=== PATIENT | female | born 1990 | race Caucasian/White ===

== ENCOUNTER 2017-08-14 09:41 | Emergency (ER) | payer BC, OTHER ==
[2017-08-14 10:00] VITALS: TEMP 98.1
[2017-08-14] MEDS ORDERED: SODIUM CHLORIDE 0.9% 1,000 ML IV ONE (10:37)
[2017-08-14 11:05] LABS: Appearance,Urine Clear (Clear); Bilirubin,Urine Negative (Negative); Blood,Urine Negative (Negative); Color,Urine Yellow; Glucose,Urine (UA) Negative (Negative); Ketones,Urine Trace (Negative); Leukocyte Esterase,Urine Negative (Negative); Nitrite,Urine Negative (Negative); Protein,Urine Negative (Negative); Specific Gravity,Urine 1.012 (1.001-1.035); Urobilinogen,Urine <2.0 mg/dL (<2.0)
[2017-08-14 11:08] LABS: Basophils % (A) 0 %; Eosinophils # (A) 0.2 k/uL (0-0.7); Eosinophils % (A) 2 %; HCT 36.9 % (34.0-46.0); HGB 12.8 gm/dL (11.4-16.0); Lymphocytes # (A) 1.4 k/uL (1.0-4.8); Lymphocytes % (A) 20 %; MCH 30.7 pg (25.0-35.0); MCHC 34.7 g/dL (31.0-37.0); MCV 88.3 fL (80.0-100.0); Mean Platelet Volume 6.5; Monocytes # (A) 0.3 k/uL (0-1.0); Monocytes % (A) 5 %; Neutrophils # (A) 5.1 k/uL (1.3-7.7); Neutrophils % (A) 71 %; Platelet Count 237 k/uL (150-450); RBC 4.18 m/uL (3.80-5.40); RDW 12.7 % (11.5-15.5); WBC 7.1 k/uL (3.8-10.6)
[2017-08-14] MEDS ORDERED: ACETAMINOPHEN TAB 500 MG TAB PO STA (11:09)
[2017-08-14 11:10] LABS: ALT 23 U/L (9-52); AST 17 U/L (14-36); Albumin 3.9 g/dL (3.5-5.0); Alkaline Phosphatase 35 U/L (38-126); Anion Gap 10 mmol/L; Blood Urea Nitrogen 12 mg/dL (7-17); Carbon Dioxide 23 mmol/L (22-30); Chloride 103 mmol/L (98-107); Glucose 78 mg/dL (74-99); Potassium 4.1 mmol/L (3.5-5.1); Sodium 136 mmol/L (137-145); Total Bilirubin 0.5 mg/dL (0.2-1.3); Total Protein 6.4 g/dL (6.3-8.2)
--- NOTE | 2017-08-14 11:10 | ED ---
Abdominal Pain HPI - General Chief Complaint: Abdominal Pain Stated Complaint: cramping - 13wks preg Time Seen by Provider: 08/14/17 10:05 Source: patient, RN notes reviewed, old records reviewed Mode of arrival: ambulatory Limitations: no limitations - History of Present Illness Initial Comments: She is a 26-year-old female currently 13 weeks , presenting to emergency Department chief complaint of vaginal cramping. She reports this occurred after she had intercourse last night. She denies any bleeding or discharge. Denies any dysuria. Patient reports that her HEAVY LINE TECHNICIAN is Dr. De La Fuente. She did have an ultrasound confirming intrauterine approximately 7 weeks ago. Patient states that she has also been having episodes her heart seems to flutter throughout the day. Patient states that she has no dysuria or hematuria. Normal stools. She denies any significant back pain. She does report that earlier today she felt sharp stabbing pain in her pelvis, but it has lessened throughout the day. - Related Data Home Medications Medication Instructions Recorded Confirmed Acetaminophen Tab [Tylenol Tab] 650 mg PO Q6H PRN 08/14/17 08/14/17 Sso-Vlsz-Sufis Acid 1 cap PO DAILY 08/14/17 08/14/17 [-U Capsule (formulary)] Allergies Allergy/AdvReac Type Severity Reaction Status Date / Time dexamethasone [From Decadron] Allergy Swelling Verified 08/14/17 10:07 Review of Systems ROS Statement: Those systems with pertinent positive or pertinent negative responses have been documented in the HPI. ROS Other: All systems not noted in ROS Statement are negative. Past Medical History Past Medical History: Hypertension Additional Past Medical History / Comment(s): adhd History of Any Multi-Drug Resistant Organisms: None Reported Additional Past Surgical History / Comment(s): lap/ hystoscopy Past Psychological History: No Psychological Hx Reported Smoking Status: Former smoker Past Alcohol Use History: None Reported Past Drug Use History: None Reported General Exam - General Exam Comments Initial Comments: 26-year-old female. Alert and oriented. No acute distress. Limitations: no limitations General appearance: alert, in no apparent distress Head exam: Present: atraumatic, normocephalic, normal inspection Eye exam: Present: normal appearance, PERRL, EOMI. Absent: scleral icterus, conjunctival injection, periorbital swelling ENT exam: Present: normal exam, mucous membranes moist Neck exam: Present: normal inspection. Absent: tenderness, meningismus, lymphadenopathy Respiratory exam: Present: normal lung sounds bilaterally. Absent: respiratory distress, wheezes, rales, rhonchi, stridor Cardiovascular Exam: Present: regular rate, normal rhythm, normal heart sounds. Absent: systolic murmur, diastolic murmur, rubs, gallop, clicks GI/Abdominal exam: Present: soft, tenderness (minimal suprapubic tenderness.), normal bowel sounds. Absent: distended, guarding, rebound, rigid Extremities exam: Present: normal inspection, full ROM, normal capillary refill. Absent: tenderness, pedal edema, joint swelling, calf tenderness Back exam: Present: normal inspection Neurological exam: Present: alert, oriented X3, CN II-XII intact Psychiatric exam: Present: normal affect, normal mood Course Vital Signs 08/14/17 09:55 Temperature 98.1 F Pulse Rate 83 Respiratory 16 Rate Blood Pressure 109/70 O2 Sat by Pulse 100 Oximetry Medical Decision Making - Medical Decision Making Patient is a 26-year-old female presents emergency Department chief complaint of lower abdominal pelvic cramping after intercourse last night.. She 13 weeks . Her HEAVY LINE TECHNICIAN is brandy Rao and she is . She also complained of some episodes of heart palpitations. This her EKG was reviewed and normal. Patient's labwork showed no evidence of any acute or maladies. She has no vaginal discharge. Ultrasound was completed. TONSILS a viable IUP measuring 13 weeks. kidney process. Patient informed of these results. I discussed symptoms are secondary to uterine stretching or anxious irritation after intercourse. Discussed proper follow-up with primary care physician. All questions answered and return parameters were discussed. - Lab Data Result diagrams: 08/14/17 10:47 08/14/17 10:47 Lab Results 08/14/17 08/14/17 08/14/17 Range/Units 10:47 10:47 10:47 WBC 7.1 (3.8-10.6) k/uL RBC 4.18 (3.80-5.40) m/uL Hgb 12.8 (11.4-16.0) gm/dL Hct 36.9 (34.0-46.0) % MCV 88.3 (80.0-100.0) fL MCH 30.7 (25.0-35.0) pg MCHC 34.7 (31.0-37.0) g/dL RDW 12.7 (11.5-15.5) % Plt Count 237 (150-450) k/uL Neutrophils % 71 % Lymphocytes % 20 % Monocytes % 5 % Eosinophils % 2 % Basophils % 0 % Neutrophils # 5.1 (1.3-7.7) k/uL Lymphocytes # 1.4 (1.0-4.8) k/uL Monocytes # 0.3 (0-1.0) k/uL Eosinophils # 0.2 (0-0.7) k/uL Basophils # 0.0 (0-0.2) k/uL Sodium 136 L (137-145) mmol/L Potassium 4.1 (3.5-5.1) mmol/L Chloride 103 (98-107) mmol/L Carbon Dioxide 23 (22-30) mmol/L Anion Gap 10 mmol/L BUN 12 (7-17) mg/dL Creatinine 0.56 (0.52-1.04) mg/dL Est GFR (CKD-EPI)AfAm >90 (>60 ml/min/1.73 sqM) Est GFR (CKD-EPI)NonAf >90 (>60 ml/min/1.73 sqM) Glucose 78 (74-99) mg/dL Calcium 9.0 (8.4-10.2) mg/dL Total Bilirubin 0.5 (0.2-1.3) mg/dL AST 17 (14-36) U/L ALT 23 (9-52) U/L Alkaline Phosphatase 35 L (38-126) U/L Total Protein 6.4 (6.3-8.2) g/dL Albumin 3.9 (3.5-5.0) g/dL Urine Color Urine Appearance (Clear) Urine pH (5.0-8.0) Ur Specific [place] (1.001-1.035) Urine Protein (Negative) Urine Glucose (UA) (Negative) Urine Ketones (Negative) Urine Blood (Negative) Urine Nitrite (Negative) Urine Bilirubin (Negative) Urine Urobilinogen (<2.0) mg/dL Ur Leukocyte Esterase (Negative) Blood Type A Positive Blood Type Recheck No 08/14/17 Range/Units 10:47 WBC (3.8-10.6) k/uL RBC (3.80-5.40) m/uL Hgb (11.4-16.0) gm/dL Hct (34.0-46.0) % MCV (80.0-100.0) fL MCH (25.0-35.0) pg MCHC (31.0-37.0) g/dL RDW (11.5-15.5) % Plt Count (150-450) k/uL Neutrophils % % Lymphocytes % % Monocytes % % Eosinophils % % Basophils % % Neutrophils # (1.3-7.7) k/uL Lymphocytes # (1.0-4.8) k/uL Monocytes # (0-1.0) k/uL Eosinophils # (0-0.7) k/uL Basophils # (0-0.2) k/uL Sodium (137-145) mmol/L Potassium (3.5-5.1) mmol/L Chloride (98-107) mmol/L Carbon Dioxide (22-30) mmol/L Anion Gap mmol/L BUN (7-17) mg/dL Creatinine (0.52-1.04) mg/dL Est GFR (CKD-EPI)AfAm (>60 ml/min/1.73 sqM) Est GFR (CKD-EPI)NonAf (>60 ml/min/1.73 sqM) Glucose (74-99) mg/dL Calcium (8.4-10.2) mg/dL Total Bilirubin (0.2-1.3) mg/dL AST (14-36) U/L ALT (9-52) U/L Alkaline Phosphatase (38-126) U/L Total Protein (6.3-8.2) g/dL Albumin (3.5-5.0) g/dL Urine Color Yellow Urine Appearance Clear (Clear) Urine pH 7.0 (5.0-8.0) Ur Specific [place] 1.012 (1.001-1.035) Urine Protein Negative (Negative) Urine Glucose (UA) Negative (Negative) Urine Ketones Trace H (Negative) Urine Blood Negative (Negative) Urine Nitrite Negative (Negative) Urine Bilirubin Negative (Negative) Urine Urobilinogen <2.0 (<2.0) mg/dL Ur Leukocyte Esterase Negative (Negative) Blood Type Blood Type Recheck - Radiology Data Radiology results: report reviewed EKG shows normal sinus rhythm and normal EKG. Ventricular 63 bpm. DC interval is 140 ms. QRS duration 82 ms. QT QTc is 428/437 ms. No necessary based or T- wave inversion. Single live intrauterine with estimated gestational age of 13 weeks and 0 days by last nausea. Current ultrasound by Johann case. No. Gestational bleed seen. Complete survey recommended 18-20 weeks. Disposition Clinical Impression: Pelvic cramping, 13 weeks gestation of Disposition: HOME SELF-CARE Condition: Good Instructions: Abdominal Pain in (ED) Additional Instructions: Patient advised to take Tylenol for pain. Patient should follow-up with primary care physician and HEAVY LINE TECHNICIAN.. Return to emergency department if any alarming signs or symptoms occur. Is patient prescribed a controlled substance at d/c from ED?: No When asked, does pt state using other controlled substances?: No If prescribed controlled substance>3 days was MAPS reviewed?: No If opioid is for acute pain is fill amount 7 days or less?: No If Rx opioid, was Start Talking consent form obtained?: No Referrals: Nancy Beasley MD [Primary Care Provider] - 1-2 days Time of Disposition: 12:06
--- NOTE | 2017-08-14 11:59 | US ---
EXAMINATION TYPE: Transabdominal DATE OF EXAM: 05/13/17 COMPARISON: NONE CLINICAL HISTORY: 26-year-old female Pain. HX of IUD puncture. Spotting last night. General crampin g. EXAM PERFORMED: Transabdominal (TA) FINDINGS: EXAM MEASUREMENTS: GESTATIONAL AGE / DATING Dates by LMP: (13 weeks/0 days) EDC: 02/19/2018 Dates by Current Scan for: (13 weeks/4 days +/- 1 week 2 days) EDC: 02/15/2018 MATERNAL ANATOMY Uterus: 12.9 x 10.5 x 7.7 cm Right Ovary: 3.3 x 1.6 x 1.2 cm Left Ovary: 2.9 x2.2 x 1.4 cm Post CDS / Adnexa: no free fluid Presence of free fluid: no Presence of corpus luteal cyst: Left hypoechoic lesion - 1.2 x 1.6 x 0.9 cm Presence of subchorionic bleed: no GESTATION / SURVEY CRL: 7.4 (13 weeks/4 days) MSD: seen, not measured Yolk Sac (normal less than 6mm): not visualized Heart Rate: 159 bpm Rhythm: Normal IUP: Viable IUP Date of LMP: 05/15/2017, G1 Beta HcG (if available): Not available at this time Auditor Internal notes: Single live IUP measuring 13 weeks 4 days IMPRESSION: 1. Single live intrauterine with estimated gestational age of 13 weeks 0 days by LMP. [facility] ultrasound biometry is concordant (13 weeks 4 days). 2. No perigestational bleed seen. 3. Complete survey recommended at 18-20 weeks.
[2017-08-14 12:30] VITALS: BP 106/55; PULSE 69; RESP 18
== END 2017-08-14 12:27 | disposition home or self-care (01) ==
LOC: EC 09:41
DX: O26.891 Other specified pregnancy related conditions, first trimester (principal); R10.2 Pelvic and perineal pain; Z3A.13 13 weeks gestation of pregnancy; Z87.891 Personal history of nicotine dependence; Z88.8 Allergy status to other drugs, medicaments and biological substances
CPT/HCPCS: 36415; 76801; 80053; 81003; 84702; 85025; 86900; 86901; 93005; 96360; 99285

== ENCOUNTER 2018-01-24 10:04 | Inpatient (IN) | payer BC, OTHER ==
[2018-01-24 10:53] LABS: Appearance,Urine Clear (Clear); Bilirubin,Urine Negative (Negative); Blood,Urine Negative (Negative); Color,Urine Colorless; Glucose,Urine (UA) Negative (Negative); Ketones,Urine Negative (Negative); Leukocyte Esterase,Urine Negative (Negative); Nitrite,Urine Negative (Negative); PH, Urine 6.5 (5.0-8.0); Protein,Urine Trace (Negative); Specific Gravity,Urine 1.001 (1.001-1.035); Urobilinogen,Urine <2.0 mg/dL (<2.0)
[2018-01-24 11:01] LABS: Basophils % (A) 0 %; Eosinophils # (A) 0.2 k/uL (0-0.7); Eosinophils % (A) 2 %; HCT 35.7 % (34.0-46.0); HGB 12.1 gm/dL (11.4-16.0); Lymphocytes # (A) 1.8 k/uL (1.0-4.8); Lymphocytes % (A) 20 %; MCH 31.1 pg (25.0-35.0); MCHC 33.9 g/dL (31.0-37.0); MCV 91.7 fL (80.0-100.0); Mean Platelet Volume 8.7; Monocytes # (A) 0.5 k/uL (0-1.0); Monocytes % (A) 5 %; Neutrophils # (A) 6.4 k/uL (1.3-7.7); Neutrophils % (A) 71 %; Platelet Count 181 k/uL (150-450); RDW 13.5 % (11.5-15.5); WBC 9.1 k/uL (3.8-10.6)
[2018-01-24] MEDS ORDERED: LIDOCAINE 0.5% (PF) 5 MG/ML (50 ML SDV) SQ PRN (11:01)
[2018-01-24] MEDS ORDERED: CITRIC ACID-SODIUM CITRATE 15 ML CUP PO ONE (11:03)
[2018-01-24] MEDS ORDERED: ceFAZolin IN SWFI 2 GM/20 ML SYRINGE IVP ONE (11:03)
[2018-01-24] MEDS ORDERED: hydrALAZINE HCL 20 MG/ML 1 ML VIAL IVP PRN (11:05)
[2018-01-24 11:06] LABS: ALT 29 U/L (9-52); AST 22 U/L (14-36); Blood Urea Nitrogen 10 mg/dL (7-17); LDH 478 U/L (313-618); Uric Acid 4.9 mg/dL (3.7-7.4)
[2018-01-24] MEDS ORDERED: LACTATED RINGERS 1,000 ML IV SCH (11:15)
[2018-01-24] MEDS ORDERED: LACTATED RINGERS 1,000 ML BAG IV ONE (11:36)
[2018-01-24] MEDS ORDERED: MORPHINE SULFATE (PF) 0.3 MG/0.3 ML SYR ONE (11:36)
[2018-01-24] MEDS ORDERED: ONDANSETRON 4 MG/2 ML VIAL ONE (11:36)
[2018-01-24] MEDS ORDERED: diphenhydrAMINE 25 MG CAP PO PRN (11:37)
[2018-01-24] MEDS ORDERED: ZOLPIDEM 5 MG TAB PO PRN (11:37)
[2018-01-24] MEDS ORDERED: diphenhydrAMINE 50 MG/ML 1 ML VIAL IVP PRN ×2 (11:37)
[2018-01-24] MEDS ORDERED: ONDANSETRON 4 MG/2 ML VIAL IVP PRN (11:37)
[2018-01-24] MEDS ORDERED: diphenhydrAMINE 50 MG CAP PO PRN (11:37)
[2018-01-24] MEDS ORDERED: NALOXONE 0.4 MG/ML 1 ML VIAL IV PRN (11:37)
[2018-01-24] MEDS ORDERED: ACETAMINOPHEN IV (For NPO) 1,000 MG in EMPTY BAG 1 BAG IVPB ONE (11:37)
[2018-01-24] MEDS ORDERED: METOCLOPRAMIDE 5 MG/ML 2 ML VIAL IVP PRN (11:37)
[2018-01-24] MEDS ORDERED: OXYTOCIN 20 UNITS/1000 ML NS 1,000 ML IV SCH (11:45)
--- NOTE | 2018-01-24 12:25 | P.OP ---
Date of Procedure: 01/24/18 Preoperative Diagnosis: IUP at 36 and 2/sevenths weeks, severe preeclampsia, remote from delivery, history of tailbone fracture Postoperative Diagnosis: Same Procedure(s) Performed: Primary low transverse section Anesthesia: spinal Surgeon: [facility] Medical Director #1: Orlando Cheema Estimated Blood Loss (ml): 400 IV fluids (ml): 1,200 Urine output (ml): 600 Pathology: other (Placenta) Condition: stable Disposition: PACU Indications for Procedure: Severe preeclampsia, remote from delivery with a known history of tailbone fracture Operative Findings: Uterus is noted to have a soft tissue defect from IUD perforation in the past otherwise normal tubes and ovaries were appreciated. Infant girl delivered at 1158, weight of 5 lbs. 7 oz. with Apgars of 8 and 9 at one and 5 minutes respectively. Description of Procedure: The patient was prepped and draped in the usual fashion after spinal anesthesia was administered by Dr. Dugan. A Pfannenstiel incision was made and extended of the abdominal cavity without difficulty. The bladder peritoneum was elevated and incised and reflected distally. A 2 cm incision was made in the transverse plane of the lower uterine segment to enter the uterus at which time clear fluid was noted. The incision was extended in both directions using the bandage scissors. The head was encountered within the field and delivered up and through the incision where the nose and mouth were thoroughly suctioned. Remainder of the was delivered onto the surgical field where the cord was doubly clamped, cut, and the was passed for resuscitative measures with weight and Apgars as noted above. A segment of cord was then doubly clamped, cut, and set aside should cord gases become necessary. The placenta was delivered manually, intact, and was grossly normal with a grossly normal three-vessel cord. The uterus was exteriorized and the interior cavity of the uterus swept of any remaining placental and membranous fragments with a laparotomy sponge. The margins of the incision were grasped with allis clamps and the incision closed in 2 layers. First layer was a running locking layer of 0 vicryl from margin to margin followed by a second layer of imbricating 0 vicryl from margin to margin. Any small points of bleeding were then made hemostatic with the Bovie. Once hemostasis was achieved, the posterior cul-de- sac was suctioned with a guard and the uterine and ovarian findings are as noted above. The uterus was replaced within the abdominal cavity and the gutters swept of any remaining blood fluid or clot. The incision was again reexamined and hemostasis was noted to be excellent. Any small point of bleeding were made hemostatic with the Bovie. Once hemostasis was achieved the parietal peritoneum was loosely reapproximated. The layer of muscles were examined and made hemostatic with the Bovie. Attention was then turned to the fascia which was closed with 2 running stitches of 0 Vicryl proceeding from the lateral margins to the midpoint. The subcutaneous tissues were irrigated, made hemostatic with the Bovie, and reapproximated with a running stitch of 3-0 vicryl. The skin was reapproximated with 4-0 vicryl. Estimated blood loss for the case was approximately 400 mL. All sponge instrument and needle counts are correct. There were no complications. The patient tolerated the procedure well and proceeded to the recovery room in stable condition. Both mother and infant are resting comfortably in recovery.
--- NOTE | 2018-01-24 12:26 | P.HPOB ---
History of Present Illness H&P Date: 01/24/18 Chief Complaint: IUP at 36 and 2/sevenths weeks, headache, severe preeclampsia This is a very pleasant 27-year-old 1 para 0 at 36-2/7 weeks that presented to labor and delivery with complaints of elevated blood pressure and headache. Patient states the headaches or last evening delivered in nature for which she took some Tylenol this morning she noted a headache to be increasing so she decided to come in. In addition she was complaining of epigastric pain which she noted last night and fascia just pulled a muscle. On initial physical exam blood pressure was noted to be elevated 150s over 90s, blood pressures continued to increase to 160/170s/115. Patient has been receiving routine care with myself since the first trimester. On blood work showed blood type of A+, rubella immune, RPR nonreactive, hepatitis B surface antigen negative, HIV negative, group beta strep was done on 1210 but no result was noted in the chart as of yet. Patient had routine 20 week ultrasound which was normal in nature and consistent with last menstrual period. Review of Systems Constitutional: Denies chills, Denies fever Ears, nose, mouth and throat: Reports headache Cardiovascular: Reports leg edema Respiratory: Denies dyspnea Gastrointestinal: Reports heartburn, Denies nausea, Denies vomiting Genitourinary: Reports Past Medical History Past Medical History: Hypertension Additional Past Medical History / Comment(s): adhd History of Any Multi-Drug Resistant Organisms: None Reported Additional Past Surgical History / Comment(s): lap/ hystoscopy Smoking Status: Former smoker Medications and Allergies Home Medications Medication Instructions Recorded Confirmed Type Acetaminophen Tab [Tylenol Tab] 650 mg PO Q6H PRN 08/14/17 08/14/17 History Kxf-Qxry-Zvxls Acid 1 cap PO DAILY 08/14/17 01/24/18 History [-U Capsule (formulary)] Allergies Allergy/AdvReac Type Severity Reaction Status Date / Time dexamethasone [From Decadron] Allergy Swelling Verified 01/24/18 10:16 Exam Osteopathic Statement: *. No significant issues noted on an osteopathic structural exam other than those noted in the History and Physical/Consult. Intake and Output 01/23/18 01/24/18 01/24/18 22:59 06:59 14:59 Other: Weight 78.925 kg Targeted physical exam was performed and the patient in general this is a well- nourished well-developed gravid female in no acute distress, lungs noted to be clear to auscultation bilaterally and nonlabored breathing is noted heart attack noted regular rate and rhythm. Blood pressure is significantly elevated as stated above, heart tones were noted to be reactive and she is not nanda. Abdomen is noted to be soft and nontender gravid and appropriate for gestational age Results Result Diagrams: 01/24/18 10:44 01/24/18 10:44 Abnormal Lab Results - Last 24 Hours (Table) 01/24/18 Range/Units 10:32 Urine Protein Trace H (Negative) Assessment and Plan (1) Pre-eclampsia Current Visit: Yes Status: Acute Code(s): O14.90 - UNSPECIFIED PRE-ECLAMPSIA , UNSPECIFIED TRIMESTER SNOMED Code(s): 269622580 (2) Head ache Current Visit: Yes Status: Acute Code(s): R51 - HEADACHE SNOMED Code(s): 16611600 (3) Epigastric abdominal pain Current Visit: Yes Status: Acute Code(s): R10.13 - EPIGASTRIC PAIN SNOMED Code(s): 53082859 (4) 36 weeks gestation of Current Visit: Yes Status: Acute Code(s): Z3A.36 - 36 WEEKS GESTATION OF SNOMED Code(s): 73756267 Plan: Preeclampsia labs are ordered on admission, patient is counseled as the need for a primary secondary to her history of a fractured tailbone, severe preeclampsia and remoteness from delivery. Patient states understanding and is in agreement in the of the plan. Patient is counseled the risks of surgery including but not limited to infection, bleeding, damage to bladder, bowel, injury or other pelvic structures. Patient states understanding and anesthesia Alee Real patient
[2018-01-24] MEDS ORDERED: IBUPROFEN IV 800 MG in SODIUM CHLORIDE 0.9% 250 ML IV ONE (12:27)
[2018-01-24 12:39] VITALS: BMI 34.0
[2018-01-24] MEDS: LABETALOL 200 MG TAB PO SCH ×2 (12:45→20:26)
[2018-01-24] MEDS: IBUPROFEN 600 MG TAB PO PRN (16:46)
[2018-01-24 18:11] LABS: ALT 25 U/L (9-52); AST 30 U/L (14-36); Blood Urea Nitrogen 9 mg/dL (7-17); LDH 887 U/L (313-618); Uric Acid 4.4 mg/dL (3.7-7.4)
[2018-01-24 18:12] LABS: Basophils % (A) 0 %; Eosinophils # (A) 0.1 k/uL (0-0.7); Eosinophils % (A) 1 %; HCT 34.1 % (34.0-46.0); HGB 11.1 gm/dL (11.4-16.0); Lymphocytes # (A) 1.2 k/uL (1.0-4.8); Lymphocytes % (A) 11 %; MCH 30.1 pg (25.0-35.0); MCHC 32.7 g/dL (31.0-37.0); MCV 92.2 fL (80.0-100.0); Mean Platelet Volume 8.3; Monocytes # (A) 0.4 k/uL (0-1.0); Monocytes % (A) 3 %; Neutrophils # (A) 9.6 k/uL (1.3-7.7); Neutrophils % (A) 84 %; Platelet Count 182 k/uL (150-450); RDW 13.7 % (11.5-15.5); WBC 11.4 k/uL (3.8-10.6)
[2018-01-24] MEDS: ACETAMINOPHEN TAB 325 MG TAB PO PRN (19:20)
[2018-01-24] MEDS: LACTATED RINGERS 1,000 ML IV SCH ×2 (19:23→22:07)
[2018-01-24] MEDS ORDERED: LABETALOL 100 MG TAB PO SCH (21:00)
[2018-01-24] MEDS: SENNOSIDES-DOCUSATE SODIUM 1 EACH TAB PO SCH (22:08)
[2018-01-25] MEDS: ACETAMINOPHEN TAB 325 MG TAB PO PRN (03:46)
[2018-01-25] MEDS: LACTATED RINGERS 1,000 ML IV SCH ×2 (05:08→20:07)
[2018-01-25 05:41] LABS: Basophils % (A) 0 %; Eosinophils # (A) 0.1 k/uL (0-0.7); Eosinophils % (A) 2 %; HCT 31.1 % (34.0-46.0); HGB 10.6 gm/dL (11.4-16.0); Lymphocytes # (A) 1.3 k/uL (1.0-4.8); Lymphocytes % (A) 15 %; MCH 31.2 pg (25.0-35.0); MCV 91.7 fL (80.0-100.0); Monocytes # (A) 0.3 k/uL (0-1.0); Monocytes % (A) 4 %; Neutrophils # (A) 6.7 k/uL (1.3-7.7); Neutrophils % (A) 78 %; Platelet Count 155 k/uL (150-450); RBC 3.39 m/uL (3.80-5.40); RDW 13.7 % (11.5-15.5); WBC 8.5 k/uL (3.8-10.6)
[2018-01-25 05:54] LABS: ALT 30 U/L (9-52); AST 35 U/L (14-36); Blood Urea Nitrogen 8 mg/dL (7-17); LDH 701 U/L (313-618)
--- NOTE | 2018-01-25 08:17 | P.PNOBGPC ---
Subjective - Subjective Principal diagnosis: POD 1 severe preeclampsia Interval history: Patient has done well overnight. Blood pressures remained remained controlled with labetalol 200 twice daily. She denied headache to me this morning she states she is hungry. Urine output has been very good overnight. She denies discomfort this morning and is breast-feeding without difficulty Patient reports: Reports appetite normal, Reports pain well controlled [place]: doing well, nursing well Objective - Vital Signs Latest vital signs: Vital Signs Temp Pulse Resp BP Pulse Ox 01/25/18 08:00 97.8 F 103 H 16 153/93 01/25/18 04:00 98.1 F 90 15 120/77 98 01/25/18 00:00 98 F 95 15 129/83 01/24/18 20:00 98 F 94 15 150/100 98 01/24/18 18:51 90 14 142/102 01/24/18 16:00 97.8 F 72 16 134/82 01/24/18 14:25 90 16 133/80 01/24/18 13:55 83 14 132/82 01/24/18 13:25 94 14 130/80 01/24/18 13:10 95 14 141/87 01/24/18 12:55 81 14 142/83 01/24/18 12:40 84 14 168/87 01/24/18 12:25 96.4 F L 75 14 155/100 Intake and Output 01/24/18 01/25/18 01/25/18 22:59 06:59 14:59 Intake Total 1900 Output Total 2000 600 Balance -100 -600 Intake: IV 1900 Invasive Line 1 1000 Lactated Ringers 1,000 ml 900 @ 125 mls/hr IV .Q8H [facility] Rx#:[id number] Output: Urine 2000 600 Other: Voiding Method Indwelling Catheter Indwelling Catheter - Exam Extremities: Present: normal Abdomen: Present: normal appearance, soft Incision: Present: normal, dry, intact Uterus: Present: normal, firm - Labs Labs: Abnormal Lab Results - Last 24 Hours (Table) 01/24/18 01/24/18 01/24/18 Range/Units 10:32 17:41 17:41 WBC 11.4 H (3.8-10.6) k/uL RBC 3.70 L (3.80-5.40) m/uL Hgb 11.1 L (11.4-16.0) gm/dL Hct (34.0-46.0) % Neutrophils # 9.6 H (1.3-7.7) k/uL Creatinine 0.48 L (0.52-1.04) mg/dL Lactate Dehydrogenase 887 H (313-618) U/L Urine Protein Trace H (Negative) 01/25/18 01/25/18 Range/Units 05:24 05:24 WBC (3.8-10.6) k/uL RBC 3.39 L (3.80-5.40) m/uL Hgb 10.6 L (11.4-16.0) gm/dL Hct 31.1 L (34.0-46.0) % Neutrophils # (1.3-7.7) k/uL Creatinine (0.52-1.04) mg/dL Lactate Dehydrogenase 701 H (313-618) U/L Urine Protein (Negative) Assessment and Plan (1) Pre-eclampsia Current Visit: Yes Status: Acute Code(s): O14.90 - UNSPECIFIED PRE-ECLAMPSIA , UNSPECIFIED TRIMESTER SNOMED Code(s): 670489284 (2) Head ache Current Visit: Yes Status: Acute Code(s): R51 - HEADACHE SNOMED Code(s): 09671233 (3) Epigastric abdominal pain Current Visit: Yes Status: Acute Code(s): R10.13 - EPIGASTRIC PAIN SNOMED Code(s): 79092429 (4) 36 weeks gestation of Current Visit: Yes Status: Acute Code(s): Z3A.36 - 36 WEEKS GESTATION OF SNOMED Code(s): 44095361 Plan: Given her drop in platelets on morning labs from 180-155 we will redraw preeclampsia labs around noon this morning and continue to watch her blood pressures closely. We will continue routine postoperative care in addition. The Fuentes catheter may be discontinued this morning giving her excellent urine output and we will transitioned to oral pain medications this morning in addition.
[2018-01-25] MEDS: IBUPROFEN 600 MG TAB PO PRN ×3 (08:23→23:16)
[2018-01-25] MEDS: SENNOSIDES-DOCUSATE SODIUM 1 EACH TAB PO SCH ×2 (08:26→19:47)
[2018-01-25] MEDS: LABETALOL 200 MG TAB PO SCH ×2 (08:47→21:39)
[2018-01-25 12:21] LABS: Basophils % (A) 0 %; Eosinophils # (A) 0.1 k/uL (0-0.7); Eosinophils % (A) 1 %; HCT 30.6 % (34.0-46.0); HGB 10.6 gm/dL (11.4-16.0); Lymphocytes # (A) 0.8 k/uL (1.0-4.8); Lymphocytes % (A) 9 %; MCH 31.7 pg (25.0-35.0); MCHC 34.5 g/dL (31.0-37.0); Mean Platelet Volume 8.6; Monocytes # (A) 0.3 k/uL (0-1.0); Monocytes % (A) 3 %; Neutrophils # (A) 7.4 k/uL (1.3-7.7); Neutrophils % (A) 85 %; Platelet Count 169 k/uL (150-450); RBC 3.33 m/uL (3.80-5.40); RDW 13.8 % (11.5-15.5); WBC 8.7 k/uL (3.8-10.6)
[2018-01-25 12:30] LABS: ALT 30 U/L (9-52); AST 37 U/L (14-36); Blood Urea Nitrogen 10 mg/dL (7-17); LDH 746 U/L (313-618); Uric Acid 5.3 mg/dL (3.7-7.4)
[2018-01-25] MEDS: HYDROcodone/APAP 5-325MG 1 EACH TAB PO PRN ×2 (14:29→19:45)
[2018-01-25] MEDS ORDERED: OXYBUTYNIN XL 5 MG TAB.ER.24 PO SCH (17:15)
[2018-01-25] MEDS: PRENATAL VIT-IRON-FOLIC ACID 1 EACH CAP PO SCH (18:10)
[2018-01-25 18:39] LABS: Basophils % (A) 0 %; Eosinophils # (A) 0.1 k/uL (0-0.7); Eosinophils % (A) 1 %; HCT 32.7 % (34.0-46.0); HGB 10.8 gm/dL (11.4-16.0); Lymphocytes # (A) 1.1 k/uL (1.0-4.8); Lymphocytes % (A) 10 %; MCH 30.9 pg (25.0-35.0); MCHC 33.2 g/dL (31.0-37.0); MCV 93.1 fL (80.0-100.0); Mean Platelet Volume 7.9; Monocytes # (A) 0.4 k/uL (0-1.0); Monocytes % (A) 4 %; Neutrophils # (A) 9.1 k/uL (1.3-7.7); Neutrophils % (A) 84 %; Platelet Count 194 k/uL (150-450); RBC 3.51 m/uL (3.80-5.40); WBC 10.8 k/uL (3.8-10.6)
[2018-01-25 18:53] LABS: ALT 25 U/L (9-52); AST 38 U/L (14-36); Blood Urea Nitrogen 11 mg/dL (7-17); LDH 766 U/L (313-618); Uric Acid 5.4 mg/dL (3.7-7.4)
[2018-01-25] MEDS ORDERED: SIMETHICONE 80 MG CHEWABLE PO STA (22:59)
[2018-01-26] MEDS: HYDROcodone/APAP 5-325MG 1 EACH TAB PO PRN ×5 (00:34→18:14)
[2018-01-26] MEDS: IBUPROFEN 600 MG TAB PO PRN ×3 (05:44→22:44)
[2018-01-26 07:23] LABS: Basophils % (A) 0 %; Eosinophils # (A) 0.2 k/uL (0-0.7); Eosinophils % (A) 2 %; HCT 30.6 % (34.0-46.0); HGB 9.9 gm/dL (11.4-16.0); Lymphocytes # (A) 1.6 k/uL (1.0-4.8); Lymphocytes % (A) 16 %; MCH 30.2 pg (25.0-35.0); MCHC 32.4 g/dL (31.0-37.0); MCV 93.3 fL (80.0-100.0); Mean Platelet Volume 7.5; Monocytes # (A) 0.4 k/uL (0-1.0); Monocytes % (A) 5 %; Neutrophils # (A) 7.3 k/uL (1.3-7.7); Neutrophils % (A) 75 %; Platelet Count 200 k/uL (150-450); RBC 3.28 m/uL (3.80-5.40); RDW 14.1 % (11.5-15.5); WBC 9.8 k/uL (3.8-10.6)
[2018-01-26 07:35] LABS: ALT 30 U/L (9-52); AST 35 U/L (14-36); Blood Urea Nitrogen 13 mg/dL (7-17); LDH 739 U/L (313-618); Uric Acid 5.5 mg/dL (3.7-7.4)
[2018-01-26] MEDS: LABETALOL 200 MG TAB PO SCH ×2 (08:37→21:11)
[2018-01-26] MEDS: SENNOSIDES-DOCUSATE SODIUM 1 EACH TAB PO SCH ×2 (08:37→19:54)
--- NOTE | 2018-01-26 09:41 | P.PN ---
Progress Note - Text 01/25 2047 27-year-old female status post a . Patient had a Duramorph spinal for postop pain control, she has a VAS of 2 with no complaints of nausea vomiting. She has mild pruritus which is getting better
--- NOTE | 2018-01-26 10:49 | CT ---
EXAMINATION TYPE: CT pelvis wo con DATE OF EXAM: 01/26/2018 COMPARISON: None HISTORY: C section 2 days ago, severe pain just below incision site CT DLP: 572 mGycm Automated exposure control for dose reduction was used. FINDINGS: There is vertical skin scar beginning at level of umbilicus extending inferiorly. There is horizontal scar overlying the pelvis. There is some ill-defined fluid and subcutaneous air at this level which correlates with recent . No well-formed fluid collection or abscess is identified. Mild to m oderate fluid and fat stranding with mild skin thickening inferior to this could reflect active subcu taneous infection or cellulitis on background of surgical change. Small focus of nondependent air within bladder is noted presumed related to recent Fuentes catheterizat ion for surgery. Bladder is mildly distended are prominent. There is some pneumoperitoneum anterior t o the bladder. This is nonspecific could be product of recent surgery. Heterogeneous anteverted prominent uterus is seen. Central foci of hyperdensity could reflect blood p roduct and air within the endometrial cavity presumed related to recent are noted. Myometri um is fairly homogeneous surrounding the endometrium. No distinct free fluid in pelvic cul-de-sac is identified. No suspicious bowel obstruction is seen. No concerning pelvic adenopathy is identified. Visualized os seous structures are intact. IMPRESSION: SUSPECT ACTIVE INFECTION OR CELLULITIS INVOLVING THE ANTERIOR PELVIC SUBCUTANEOUS FAT JUST BELOW INCI CHEO SITE CORRELATING TO PATIENT'S SYMPTOMS. NO WELL-FORMED FLUID COLLECTION OR ABSCESS IS SEEN. OTHE R NONSPECIFIC FINDINGS ARE FAVORED POSTSURGICAL.
--- NOTE | 2018-01-26 11:06 | P.PNOBGPC ---
Subjective - Subjective Principal diagnosis: POD 2 LTCS severe preeclampsia Interval history: Patient has been complaining of lower pelvic pain overnight. She states that when she gets up she will have pain on the left lower side of her pelvic area. She is able to urinate without difficulty and denies any pain with urination. She is passing gas. She states her lochia is moderate. She denies fevers or chills. She is breast-feeding without difficulty yet infant has dropped weight 9% from weight. She is taking [place] 5/325 and states there is no difference in the pain from taking it. She states she becomes nauseous when the pain is there. But is tolerating a regular diet without nausea or vomiting. Patient reports: Reports appetite normal, Reports voiding normally (some pain with ambulation ) : doing well (feeding difficulties, and she is considering supplementating) Objective - Vital Signs Latest vital signs: Vital Signs Temp Pulse Resp BP Pulse Ox 01/26/18 08:00 98.0 F 100 16 136/90 97 01/26/18 03:42 96 16 134/84 01/25/18 23:39 97.6 F 108 H 16 141/86 98 01/25/18 21:46 144/92 01/25/18 19:50 98.0 F 106 H 16 130/89 97 01/25/18 16:00 98.4 F 103 H 16 135/84 01/25/18 11:48 97.8 F 101 H 14 120/75 Intake and Output 01/25/18 01/26/18 01/26/18 22:59 06:59 14:59 Output Total 1500 1200 600 Balance -1500 -1200 -600 Output: Urine 1500 1200 600 Other: # Voids 1 1 - Exam Extremities: Present: normal Abdomen: Present: normal appearance, soft Incision: Present: normal, dry, intact Uterus: Present: normal, firm (tenderness over her pubic symphysis point tender. ) - Labs Labs: Abnormal Lab Results - Last 24 Hours (Table) 01/25/18 01/25/18 01/25/18 Range/Units 12:04 12:04 18:21 WBC 10.8 H (3.8-10.6) k/uL RBC 3.33 L 3.51 L (3.80-5.40) m/uL Hgb 10.6 L 10.8 L (11.4-16.0) gm/dL Hct 30.6 L 32.7 L (34.0-46.0) % Neutrophils # 9.1 H (1.3-7.7) k/uL Lymphocytes # 0.8 L (1.0-4.8) k/uL AST 37 H (14-36) U/L Lactate Dehydrogenase 746 H (313-618) U/L 01/25/18 01/26/18 01/26/18 Range/Units 18:21 06:52 06:52 WBC (3.8-10.6) k/uL RBC 3.28 L (3.80-5.40) m/uL Hgb 9.9 L (11.4-16.0) gm/dL Hct 30.6 L (34.0-46.0) % Neutrophils # (1.3-7.7) k/uL Lymphocytes # (1.0-4.8) k/uL AST 38 H (14-36) U/L Lactate Dehydrogenase 766 H 739 H (313-618) U/L Assessment and Plan (1) Pre-eclampsia Current Visit: Yes Status: Acute Code(s): O14.90 - UNSPECIFIED PRE-ECLAMPSIA , UNSPECIFIED TRIMESTER SNOMED Code(s): 481850776 (2) Head ache Current Visit: Yes Status: Acute Code(s): R51 - HEADACHE SNOMED Code(s): 64535574 (3) Epigastric abdominal pain Current Visit: Yes Status: Acute Code(s): R10.13 - EPIGASTRIC PAIN SNOMED Code(s): 88108602 (4) 36 weeks gestation of Current Visit: Yes Status: Acute Code(s): Z3A.36 - 36 WEEKS GESTATION OF SNOMED Code(s): 85768093 (5) Pelvic pain Current Visit: Yes Status: Acute Code(s): R10.2 - PELVIC AND PERINEAL PAIN SNOMED Code(s): 56500985 Plan: given her complaints of pain I will order CT scan of the pelvis. I doubt bladder issue as she has been voiding without difficulty, good output and yellow in color since souza was placed in the OR. she is passing flatus and abdomen is soft and uterus is firm, lochia is minimal. I do believe she has a musculoskeletal issue. I encouraged her to increase ambulation as POD 1 is a hard day and she should start to feel better today. of note CT scan was ordered and essentially neg with findings of questionable subcutaneous infection otherwise neg. will treat for presumed infection at site of pain. plan discussed with pt and although frustrated she is ok with the plan.
[2018-01-26] MEDS: ceFAZolin IN SWFI 2 GM/20 ML SYRINGE IVP SCH ×2 (11:50→19:53)
[2018-01-26] MEDS: PRENATAL VIT-IRON-FOLIC ACID 1 EACH CAP PO SCH (18:14)
[2018-01-27] MEDS: ACETAMINOPHEN TAB 325 MG TAB PO PRN (03:10)
[2018-01-27] MEDS: IBUPROFEN 600 MG TAB PO PRN (07:52)
[2018-01-27 08:24] VITALS: RESP 15
[2018-01-27] MEDS: LABETALOL 200 MG TAB PO SCH (08:33)
--- NOTE | 2018-01-27 09:18 | P.DS ---
Providers Date of admission: 01/24/18 11:07 Expected date of discharge: 01/27/18 Attending physician: Cherelle Linares Primary care physician: Stated None - Discharge Diagnosis(es) (1) Pre-eclampsia Current Visit: Yes Status: Acute (2) Head ache Current Visit: Yes Status: Acute (3) Epigastric abdominal pain Current Visit: Yes Status: Acute (4) 36 weeks gestation of Current Visit: Yes Status: Acute (5) Pelvic pain Current Visit: Yes Status: Acute Hospital Course: This is a pleasant 27-year-old 1 para 0 that presented to the hospital with complaints of headache. Elevated blood pressures were noted findings being 188/117. Patient was counseled on the need for primary low transverse section at that time secondary to blood pressures and being remote from delivery. Patient had noted headache and complaint of epigastric pain addition. She was given the diagnosis of severe preeclampsia and was performed. For further details on the please see the operative report. Patient delivered a viable female infant at Patient's postoperative course is been essentially uneventful. Her blood pressure is been controlled with labetalol 200 twice daily. She did complain of some lower suprapubic pain for which she received antibiotics and states she is feeling better on this postop day #3. On postop day #2 she did complain of significant pelvic pain therefore CAT scan was obtained and felt to be normal in nature. On this post day #3 she is ambulating and voiding without difficulty. She is tolerating a regular diet without nausea or vomiting. She states her pain is controlled with oral pain medication. She is breast-feeding without difficulty. Patient Condition at Discharge: Good Plan - Discharge Summary New Discharge Prescriptions: No Action Eoy-Mzde-Zxlmf Acid [-U Capsule (formulary)] 1 cap PO DAILY Acetaminophen Tab [Tylenol Tab] 650 mg PO Q6H PRN PRN Reason: Pain Discharge Medication List Acetaminophen Tab [Tylenol Tab] 650 mg PO Q6H PRN 08/14/17 [History] Now-Lyns-Xlstw Acid [-U Capsule (formulary)] 1 cap PO DAILY 06/27 [History] Follow up Appointment(s)/Referral(s): Cherelle Linares DO [Doctor of Osteopathic Medicine] - 1 Week Patient Instructions/Handouts: (DC), (GEN) Activity/Diet/Wound Care/Special Instructions: No tub baths or intercourse until 6 weeks Discharge Disposition: HOME SELF-CARE
[2018-01-27] MEDS: HYDROcodone/APAP 5-325MG 1 EACH TAB PO PRN (13:47)
[2018-01-27] MEDS: SENNOSIDES-DOCUSATE SODIUM 1 EACH TAB PO SCH (13:48)
[2018-01-27 13:57] VITALS: BP 135/88; PULSE 93; TEMP 98
== END 2018-01-27 15:09 | disposition home or self-care (01) | DRG 788 ==
LOC: FBPOP 10:04 → 4FBP 11:07
PROVIDERS: ADMIT Obstetrics & Gynecology Obstetrics; ATTEND Obstetrics & Gynecology Obstetrics
PROC: 10D00Z1 Extraction of Products of Conception, Low, Open Approach (ICD-10-PCS; principal; 2018-01-24 11:58)
DX: O14.14 Severe pre-eclampsia complicating childbirth (principal); O99.344 Other mental disorders complicating childbirth; F90.9 Attention-deficit hyperactivity disorder, unspecified type; L29.9 Pruritus, unspecified; Z3A.36 36 weeks gestation of pregnancy; Z37.0 Single live birth; Z79.899 Other long term (current) drug therapy; Z87.81 Personal history of (healed) traumatic fracture; Z87.891 Personal history of nicotine dependence
CPT/HCPCS: 59025; 72192; 81003; 82565; 83615; 84450; 84460; 84520; 84550; 85025; 88307; 99215

== ENCOUNTER 2018-10-19 19:46 | Emergency (ER) | payer OTHER ==
[2018-10-19 19:57] VITALS: RESP 18; TEMP 98.8
[2018-10-19] MEDS ORDERED: ACETAMINOPHEN TAB 325 MG TAB PO STA (20:05)
[2018-10-19] MEDS ORDERED: IBUPROFEN 600 MG TAB PO STA (20:05)
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
[2018-10-19 22:03] VITALS: BP 128/84; PULSE 95
== END 2018-10-19 22:02 | disposition home or self-care (01) ==
LOC: EC 19:46
DX: S92.422A Displaced fracture of distal phalanx of left great toe, initial encounter for closed fracture (principal); Z87.891 Personal history of nicotine dependence; Z88.8 Allergy status to other drugs, medicaments and biological substances; W23.0XXA Caught, crushed, jammed, or pinched between moving objects, initial encounter
CPT/HCPCS: 99283

== ENCOUNTER → 2019-03-29 | Outpatient (CLI) | payer OTHER ==
--- NOTE | 2019-03-30 03:33 | MR ---
EXAMINATION TYPE: MR brain wo con DATE OF EXAM: 03/29/2019 COMPARISON: None HISTORY: headache, family hx of aneurysm Multiplanar multiecho imaging of the brain was performed without contrast. Ventricles and sulci appea r normal. There is no mass effect nor midline shift. There is no sign of intracranial hemorrhage. Cor pus callosum appears normal. Sella turcica is normal. Diffusion images show no evidence of cortical infarct. There is no evidence of cerebral edema. There is some maxillary sinus mucosal thickening. There is no evidence of a posterior fossa mass. Cerebellu m appears normal. IMPRESSION: Negative MR scan of the brain. Mild maxillary sinusitis.
== END | disposition home or self-care (01) ==
LOC: RADMRIMAIN 09:14
PROVIDERS: ATTEND Family Medicine
DX: R51 Headache (principal)
CPT/HCPCS: 70551

== ENCOUNTER 2019-08-10 13:59 | Emergency (ER) | payer OTHER ==
[2019-08-10] MEDS ORDERED: HYDROmorphone 1 MG/ML 1 ML SYRINGE IVP STA (14:07)
[2019-08-10] MEDS ORDERED: KETOROLAC 60 MG/2 ML VIAL IVP STA (14:07)
[2019-08-10] MEDS ORDERED: SODIUM CHLORIDE 0.9% 500 ML 500 ML IV ONE (14:09)
[2019-08-10 14:17] VITALS: RESP 18
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
[2019-08-10] MEDS ORDERED: HYDROmorphone 0.5 MG/0.5 ML SYRINGE IVP STA (15:07)
[2019-08-10 16:32] VITALS: BP 135/68; PULSE 95; TEMP 98
== END 2019-08-10 16:32 | disposition home or self-care (01) ==
LOC: EC 13:59
DX: T59.4X1A Toxic effect of chlorine gas, accidental (unintentional), initial encounter (principal); T21.61XA Corrosion of second degree of chest wall, initial encounter; T22.631A Corrosion of second degree of right upper arm, initial encounter; T21.62XA Corrosion of second degree of abdominal wall, initial encounter; T32.0 Corrosions involving less than 10% of body surface; Z88.8 Allergy status to other drugs, medicaments and biological substances; Z87.891 Personal history of nicotine dependence; Y92.009 Unspecified place in unspecified non-institutional (private) residence as the place of occurrence of the external cause
CPT/HCPCS: 99284; 96374; 96375 ×2; 96361 ×2; J1885; J1170 ×2

== ENCOUNTER → 2020-06-28 | Outpatient (CLI) | payer OTHER ==
[2020-06-28 19:26] LABS: HCT 36.1 % (37.2-46.3); HGB 11.9 g/dL (12.0-15.0); MCH 30.6 pg (27.0-32.0); MCV 92.8 fL (80.0-97.0); Mean Platelet Volume 9.9 fL (9.5-12.2); Platelet Count 256 X 10*3/uL (140-440); RBC 3.89 X 10*6/uL (4.10-5.20); RDW 12.6 % (11.5-14.5); WBC 6.07 X 10*3/uL (4.50-10.00)
[2020-06-28 23:59] LABS: African American GFR (CKD) 141.8 (60.0-200.0); Non-African American GFR(CKD) 122.3 (60.0-200.0)
[2020-06-29 00:57] LABS: HCG,Quantitative Serum 23306.1 mIU/mL
== END | disposition home or self-care (01) ==
LOC: LABWHC1 11:25
PROVIDERS: ATTEND Obstetrics & Gynecology Obstetrics
DX: O00.90 Unspecified ectopic pregnancy without intrauterine pregnancy (principal); Z3A.00 Weeks of gestation of pregnancy not specified
CPT/HCPCS: 36415; 82565; 84450; 84460; 84520; 84702; 85027

== ENCOUNTER → 2020-06-28 | Outpatient (CLI) | payer OTHER ==
[~2020-06-28] MED LIST: METHOTREXATE SODIUM (PF) 25 MG/ML 2 ML VIAL IM NR
[2020-06-28 13:40] VITALS: BP 122/67; PULSE 88; RESP 16; TEMP 98.1
== END ==
LOC: PROCWHC3 13:06
PROVIDERS: ATTEND Obstetrics & Gynecology Obstetrics
DX: Z88.8 Allergy status to other drugs, medicaments and biological substances (principal); Z3A.36 36 weeks gestation of pregnancy; O00.109 Unspecified tubal pregnancy without intrauterine pregnancy; Z87.891 Personal history of nicotine dependence
CPT/HCPCS: 96372; J9260

== ENCOUNTER 2020-06-30 11:08 | Emergency (ER) | payer OTHER ==
[2020-06-30 11:16] VITALS: RESP 18
--- NOTE | 2020-06-30 12:38 | ED ---
Abdominal Pain HPI - General Chief Complaint: Abdominal Pain Stated Complaint: Abd pain/post tubal pregancy Time Seen by Provider: 06/30/20 11:34 Source: patient Mode of arrival: ambulatory Limitations: no limitations - History of Present Illness Initial Comments: Patient is a 29-year-old female presenting to the emergency department with continued right lower quadrant pain. Patient states she was being treated for an ectopic with FLAKE CUTTER OPERATOR Dr. Linares, she took a medication 2 days ago. Patient states she was having a lot of pain yesterday and this morning however when she took a shower she felt like her pain is decreasing. Patient states she called her FLAKE CUTTER OPERATOR in the recommend coming in for further evaluation. She's had no vaginal bleeding, no cramping discontinued sharp right lower quadrant pain. She's had some nausea, no vomiting. She states currently her pain is a 4/10, she did take a [place] this morning. This is her second , she has 1 child at home. She is admits to history of . She has no further complaints. Upon arrival to the ER, her vitals are stable. - Related Data Home Medications Medication Instructions Recorded Confirmed Acetaminophen Tab [Tylenol Tab] 1,000 mg PO Q6H PRN 06/30/20 06/30/20 HYDROcodone/APAP 5-325MG [[place] 1 tab PO DAILY PRN 06/30/20 06/30/20 5-325] Methotrexate Injection(Unknown) 1 dose SQ ONCE 06/30/20 06/30/20 Allergies Allergy/AdvReac Type Severity Reaction Status Date / Time dexamethasone [From Decadron] Allergy Swelling/Hi Verified 06/30/20 13:09 ves Review of Systems ROS Statement: Those systems with pertinent positive or pertinent negative responses have been documented in the HPI. ROS Other: All systems not noted in ROS Statement are negative. Past Medical History Past Medical History: Hypertension Additional Past Medical History / Comment(s): adhd History of Any Multi-Drug Resistant Organisms: None Reported Past Surgical History: Section Additional Past Surgical History / Comment(s): lap/ hystoscopy Past Anesthesia/Blood Transfusion Reactions: No Reported Reaction Past Psychological History: Depression Smoking Status: Former smoker Past Alcohol Use History: None Reported Past Drug Use History: None Reported - Past Family History Father Family Medical History: Hypertension General Exam - General Exam Comments Initial Comments: GENERAL: Patient is well-developed and well-nourished. Patient is nontoxic and in no acute distress. HEAD: Atraumatic, normocephalic. EYES: Pupils equal round and reactive to light, extraocular movements intact, sclera anicteric, conjunctiva are normal. Eyelids were unremarkable. ENT: TMs normal, nares patent, oropharynx clear without exudates. Moist mucous membranes. NECK: Normal range of motion, supple without lymphadenopathy or JVD. LUNGS: Unlabored respirations. Breath sounds clear to auscultation bilaterally and equal. No wheezes rales or rhonchi. HEART: Regular rate and rhythm without murmurs, rubs or gallops. ABDOMEN: Soft, tender to palpation in the right lower quadrant, normoactive bowel sounds. No guarding, no rebound. No masses appreciated. : Deferred MUSCULOSKELETAL: Normal extremities with adequate strength and normal range of motion, no pitting or edema. No clubbing or cyanosis. NEUROLOGICAL: Patient is alert and oriented x 3. Motor and sensory are also intact. Cranial nerves II through XII grossly intact. Symmetrical smile. Normal speech, normal gait. PSYCH: Normal mood, normal affect. SKIN: Warm, Dry, normal turgor, no rashes or lesions noted. Limitations: no limitations Course Vital Signs 06/30/20 06/30/20 06/30/20 11:14 11:16 14:02 Temperature 98.0 F 98.7 F Pulse Rate 84 78 77 Respiratory 18 18 18 Rate Blood Pressure 133/78 118/78 110/77 O2 Sat by Pulse 100 97 97 Oximetry Medical Decision Making - Medical Decision Making Patient is a 29-year-old female here with worsening pain after being diagnosed with a ectopic . She took methotrexate 2 days ago, FLAKE C[employer] OPERATOR is Dr. Linares. No vaginal bleeding. . Vitals are stable. Labs are stable, normal hemoglobin. HCG today is 25,000, 2 days ago was 23,000. Ultrasound today reveals large right adnexal mass measuring 2.5x 2.8 x 2.4 abutting the right ovary. There is no free fluid noted. Case was discussed with Dr. Linares, who is okay with patient being d/c home with close follow-up friday morning and strict returns parameters. Discussed these findings with the patient. She is in a greement this plan of care. On reexamination, patient's belly remains soft, mildly tender in the right lower quadrant. Strict return parameters were discussed with the patient she verbalized understanding. Case discussed with Dr. Garland. - Lab Data Result diagrams: 06/30/20 12:40 06/30/20 12:40 Lab Results 06/30/20 06/30/20 06/30/20 Range/Units 12:40 12:40 12:40 WBC 7.9 (3.8-10.6) k/uL RBC 4.33 (3.80-5.40) m/uL Hgb 13.7 (11.4-16.0) gm/dL Hct 39.1 (34.0-46.0) % MCV 90.5 (80.0-100.0) fL MCH 31.6 (25.0-35.0) pg MCHC 34.9 (31.0-37.0) g/dL RDW 12.4 (11.5-15.5) % Plt Count 244 (150-450) k/uL MPV 6.8 Neutrophils % 76 % Lymphocytes % 16 % Monocytes % 3 % Eosinophils % 3 % Basophils % 1 % Neutrophils # 6.0 (1.3-7.7) k/uL Lymphocytes # 1.3 (1.0-4.8) k/uL Monocytes # 0.3 (0-1.0) k/uL Eosinophils # 0.3 (0-0.7) k/uL Basophils # 0.0 (0-0.2) k/uL Sodium (137-145) mmol/L Potassium (3.5-5.1) mmol/L Chloride (98-107) mmol/L Carbon Dioxide (22-30) mmol/L Anion Gap mmol/L BUN (7-17) mg/dL Creatinine (0.52-1.04) mg/dL Est GFR (CKD-EPI)AfAm (>60 ml/min/1.73 sqM) Est GFR (CKD-EPI)NonAf (>60 ml/min/1.73 sqM) Glucose (74-99) mg/dL Calcium (8.4-10.2) mg/dL Total Bilirubin (0.2-1.3) mg/dL AST (14-36) U/L ALT (4-34) U/L Alkaline Phosphatase (38-126) U/L Total Protein (6.3-8.2) g/dL Albumin (3.5-5.0) g/dL HCG, Quant mIU/mL Urine Color Yellow Urine Appearance Clear (Clear) Urine pH 6.0 (5.0-8.0) Ur Specific [place] 1.020 (1.001-1.035) Urine Protein Negative (Negative) Urine Glucose (UA) Negative (Negative) Urine Ketones Negative (Negative) Urine Blood Negative (Negative) Urine Nitrite Negative (Negative) Urine Bilirubin Negative (Negative) Urine Urobilinogen <2.0 (<2.0) mg/dL Ur Leukocyte Esterase Small H (Negative) Urine WBC 16 H (0-5) /hpf Ur Squamous Epith Cells <1 (0-4) /hpf Urine Bacteria Moderate H (None) /hpf Urine Mucus Occasional H (None) /hpf Blood Type A Positive Blood Type Recheck A Pos Bld Type Recheck Status No 06/30/20 Range/Units 12:40 WBC (3.8-10.6) k/uL RBC (3.80-5.40) m/uL Hgb (11.4-16.0) gm/dL Hct (34.0-46.0) % MCV (80.0-100.0) fL MCH (25.0-35.0) pg MCHC (31.0-37.0) g/dL RDW (11.5-15.5) % Plt Count (150-450) k/uL MPV Neutrophils % % Lymphocytes % % Monocytes % % Eosinophils % % Basophils % % Neutrophils # (1.3-7.7) k/uL Lymphocytes # (1.0-4.8) k/uL Monocytes # (0-1.0) k/uL Eosinophils # (0-0.7) k/uL Basophils # (0-0.2) k/uL Sodium 138 (137-145) mmol/L Potassium 4.7 (3.5-5.1) mmol/L Chloride 107 (98-107) mmol/L Carbon Dioxide 21 L (22-30) mmol/L Anion Gap 10 mmol/L BUN 9 (7-17) mg/dL Creatinine 0.46 L (0.52-1.04) mg/dL Est GFR (CKD-EPI)AfAm >90 (>60 ml/min/1.73 sqM) Est GFR (CKD-EPI)NonAf >90 (>60 ml/min/1.73 sqM) Glucose 87 (74-99) mg/dL Calcium 9.5 (8.4-10.2) mg/dL Total Bilirubin 0.6 (0.2-1.3) mg/dL AST 24 (14-36) U/L ALT 10 (4-34) U/L Alkaline Phosphatase 50 (38-126) U/L Total Protein 7.4 (6.3-8.2) g/dL Albumin 4.7 (3.5-5.0) g/dL HCG, Quant 88212.1 mIU/mL Urine Color Urine Appearance (Clear) Urine pH (5.0-8.0) Ur Specific [place] (1.001-1.035) Urine Protein (Negative) Urine Glucose (UA) (Negative) Urine Ketones (Negative) Urine Blood (Negative) Urine Nitrite (Negative) Urine Bilirubin (Negative) Urine Urobilinogen (<2.0) mg/dL Ur Leukocyte Esterase (Negative) Urine WBC (0-5) /hpf Ur Squamous Epith Cells (0-4) /hpf Urine Bacteria (None) /hpf Urine Mucus (None) /hpf Blood Type Blood Type Recheck Bld Type Recheck Status Disposition Clinical Impression: Ectopic Disposition: HOME SELF-CARE Condition: Stable Instructions (If sedation given, give patient instructions): Ectopic (DC) Additional Instructions: Please return to the Emergency Department if symptoms worsen or any other conc erns. Follow-up with Dr. Linares first thing Friday morning. Is patient prescribed a controlled substance at d/c from ED?: No Referrals: Antoine Smith MD [Primary Care Provider] - 1-2 days Cherelle Linares DO [Doctor of Osteopathic Medicine] - 1-2 days Time of Disposition: 14:45
[2020-06-30 13:03] LABS: Basophils % (A) 1 %; Eosinophils # (A) 0.3 k/uL (0-0.7); Eosinophils % (A) 3 %; HCT 39.1 % (34.0-46.0); HGB 13.7 gm/dL (11.4-16.0); Lymphocytes # (A) 1.3 k/uL (1.0-4.8); Lymphocytes % (A) 16 %; MCH 31.6 pg (25.0-35.0); MCHC 34.9 g/dL (31.0-37.0); MCV 90.5 fL (80.0-100.0); Mean Platelet Volume 6.8; Monocytes # (A) 0.3 k/uL (0-1.0); Monocytes % (A) 3 %; Neutrophils % (A) 76 %; Platelet Count 244 k/uL (150-450); RBC 4.33 m/uL (3.80-5.40); RDW 12.4 % (11.5-15.5); WBC 7.9 k/uL (3.8-10.6)
[2020-06-30 13:14] LABS: ALT 10 U/L (4-34); AST 24 U/L (14-36); African American GFR (CKD) >90 (>60 ml/min/1.73 sqM); Albumin 4.7 g/dL (3.5-5.0); Alkaline Phosphatase 50 U/L (38-126); Anion Gap 10 mmol/L; Blood Urea Nitrogen 9 mg/dL (7-17); Calcium 9.5 mg/dL (8.4-10.2); Carbon Dioxide 21 mmol/L (22-30); Chloride 107 mmol/L (98-107); Glucose 87 mg/dL (74-99); Non-African American GFR(CKD) >90 (>60 ml/min/1.73 sqM); Sodium 138 mmol/L (137-145); Total Bilirubin 0.6 mg/dL (0.2-1.3); Total Protein 7.4 g/dL (6.3-8.2)
[2020-06-30 13:24] LABS: Appearance,Urine Clear (Clear); Bacteria,Urine Moderate /hpf; Bilirubin,Urine Negative (Negative); Blood,Urine Negative (Negative); Color,Urine Yellow; Glucose,Urine (UA) Negative (Negative); Ketones,Urine Negative (Negative); Leukocyte Esterase,Urine Small (Negative); Mucus,Urine Occasional /hpf; Nitrite,Urine Negative (Negative); Protein,Urine Negative (Negative); Squamous Epithelial Cell,Urine <1 /hpf (0-4); Urobilinogen,Urine <2.0 mg/dL (<2.0); WBC,Urine 16 /hpf (0-5)
[2020-06-30 13:25] LABS: Potassium 4.7 mmol/L (3.5-5.1)
[2020-06-30] MEDS ORDERED: KETOROLAC 15 MG/ML 1 ML VIAL IVP STA (13:45)
--- NOTE | 2020-06-30 14:02 | US ---
EXAMINATION TYPE: US transvaginal DATE OF EXAM: 06/30/2020 COMPARISON: NONE CLINICAL HISTORY: r/o ectopic rupture. Right pelvic pain. History of ectopic , methotrexate started 2 days ago. No HcG results at time of exam TECHNIQUE: Transvaginal (TV). Date of LMP: unknown EXAM MEASUREMENTS: Uterus: 8.2 x 4.2 x 5.1 cm Right Ovary: 2.5 x 2.3 x 3.3 cm Left Ovary: 3.2 x 1.6 x 1.5 cm 1. Uterus: Anteverted heterogeneous 2. Endometrium: not clearly identified 3. Right Ovary: follicles noted 4. Left Ovary: possible corpus luteum = 2.2 x 1.7 x 1.6cm Spectral, color and waveform doppler imaging shows good arterial and venous flow within the ovaries ; there is no evidence for ovarian torsion. 5. Bilateral Adnexa: There is a mass right adnexa adjacent to right ovary = 2.5 x 2.8 x 2.4cm 6. Posterior cul-de-sac: appears wnl There is a right adnexal mass measuring 2.8 x 2.5 x 2.4 cm which is heterogeneous and has a central a nechoic component. This may represent the ectopic . Obstetric evaluation is strongly recomme nded. This is adjacent and abutting the right ovary. IMPRESSION: 1. Large right adnexal mass measuring 2.5 x 2.8 x 2.4 cm abutting the right ovary. This is worrisome for an ectopic . Obstetric evaluation is recommended. 2. The endometrium is not clearly identified on this study.; Spoke with referring provider Nica Escobar in the emergency department at 2:00 PM on 06/30/2020
[2020-06-30 14:05] LABS: HCG,Quantitative Serum 25718.1 mIU/mL
[2020-06-30 14:55] VITALS: BP 109/71; PULSE 71; TEMP 97.8
== END 2020-06-30 14:59 | disposition home or self-care (01) ==
LOC: EC 11:08
DX: O00.90 Unspecified ectopic pregnancy without intrauterine pregnancy (principal); O10.919 Unspecified pre-existing hypertension complicating pregnancy, unspecified trimester; Z87.891 Personal history of nicotine dependence
CPT/HCPCS: 36415; 86900; 86901; 80053; 85025; 81001; 84702; 87086; 87077; 87186; 76830; 99284; 96374; J1885; 93975

== ENCOUNTER → 2020-07-02 | Outpatient (CLI) | payer OTHER | END | disposition home or self-care (01) | LOC: LABMAIN 19:20 | PROVIDERS: ATTEND Obstetrics & Gynecology Obstetrics | DX: O00.109 Unspecified tubal pregnancy without intrauterine pregnancy (principal) | CPT/HCPCS: 36415; 84702 ==

== ENCOUNTER → 2020-07-05 | Outpatient (CLI) | payer OTHER | LOC: LABWHC1 07:48 | PROVIDERS: ATTEND Obstetrics & Gynecology Obstetrics | DX: O00.90 Unspecified ectopic pregnancy without intrauterine pregnancy (principal); Z3A.00 Weeks of gestation of pregnancy not specified | CPT/HCPCS: 36415; 84702 ==

== ENCOUNTER 2020-07-26 13:55 | Observation (INO) | payer OTHER ==
[2020-07-26] MEDS ORDERED: SODIUM CHLORIDE 0.9% 1,000 ML IV STA (15:12)
[2020-07-26] MEDS ORDERED: HYDROmorphone 0.5 MG/0.5 ML SYRINGE IVP STA (15:12)
[2020-07-26] MEDS ORDERED: ONDANSETRON 4 MG/2 ML VIAL IVP STA (15:12)
--- NOTE | 2020-07-26 15:23 | ED ---
Abdominal Pain HPI - General Chief Complaint: Abdominal Pain Stated Complaint: Tubal Time Seen by Provider: 07/26/20 14:41 Source: patient, RN notes reviewed Mode of arrival: ambulatory Limitations: no limitations - History of Present Illness Initial Comments: 29-year-old female presents emergency Department with chief complaint right- sided abdominal pain. Patient states she was diagnosed by Dr. Linares of a ectopic and was given methotrexate at the end of June. She states that she never followed for bloodwork but states that she's recently increasing right-sided abdominal pain. She states that she feels like this may be related. Patient said prior section patient has mild vaginal spotting at times but states has stopped. No dysuria no hematuria no fevers currently. - Related Data Home Medications Medication Instructions Recorded Confirmed Acetaminophen Tab [Tylenol Tab] 1,000 mg PO Q6H PRN 06/30/20 07/26/20 HYDROcodone/APAP 5-325MG [[place] 1 tab PO DAILY PRN 06/30/20 07/26/20 5-325] Allergies Allergy/AdvReac Type Severity Reaction Status Date / Time dexamethasone [From Decadron] Allergy Swelling/Hi Verified 07/26/20 16:50 ves Review of Systems ROS Statement: Those systems with pertinent positive or pertinent negative responses have been documented in the HPI. ROS Other: All systems not noted in ROS Statement are negative. Past Medical History Past Medical History: Hypertension Additional Past Medical History / Comment(s): adhd. Covid 04/02 History of Any Multi-Drug Resistant Organisms: None Reported Past Surgical History: Section Additional Past Surgical History / Comment(s): lap/ hystoscopy Past Anesthesia/Blood Transfusion Reactions: No Reported Reaction Past Psychological History: Depression Smoking Status: Former smoker Past Alcohol Use History: None Reported Past Drug Use History: None Reported - Past Family History Father Family Medical History: Hypertension General Exam Limitations: no limitations General appearance: alert, in no apparent distress Head exam: Present: atraumatic, normocephalic, normal inspection Neck exam: Present: normal inspection. Absent: tenderness, meningismus, lymphadenopathy Respiratory exam: Present: normal lung sounds bilaterally. Absent: respiratory distress, wheezes, rales, rhonchi, stridor Cardiovascular Exam: Present: regular rate, normal rhythm, normal heart sounds. Absent: systolic murmur, diastolic murmur, rubs, gallop, clicks GI/Abdominal exam: Present: soft, tenderness (Moderate right-sided), normal bowel sounds. Absent: distended, guarding, rebound, rigid Back exam: Absent: CVA tenderness (R), CVA tenderness (L) Course Vital Signs 07/26/20 14:01 Temperature 98.6 F Pulse Rate 102 H Respiratory 20 Rate Blood Pressure 142/87 O2 Sat by Pulse 99 Oximetry Medical Decision Making - Medical Decision Making Case discussed with Dr. Linares patient was evaluated in the emergency department. Patient has an enlarging mass on the right side on ultrasound. HCG has dropped significantly or patient remains to be tender. Patient will be taken to or for exploratory - Lab Data Result diagrams: 07/26/20 15:25 07/26/20 15:25 Lab Results 07/26/20 07/26/20 07/26/20 Range/Units 15:25 15:25 15:25 WBC 12.6 H (3.8-10.6) k/uL RBC 4.17 (3.80-5.40) m/uL Hgb 13.1 (11.4-16.0) gm/dL Hct 37.9 (34.0-46.0) % MCV 91.1 (80.0-100.0) fL MCH 31.6 (25.0-35.0) pg MCHC 34.6 (31.0-37.0) g/dL RDW 12.5 (11.5-15.5) % Plt Count 201 (150-450) k/uL MPV 7.1 Neutrophils % 88 % Lymphocytes % 7 % Monocytes % 3 % Eosinophils % 1 % Basophils % 0 % Neutrophils # 11.1 H (1.3-7.7) k/uL Lymphocytes # 0.9 L (1.0-4.8) k/uL Monocytes # 0.4 (0-1.0) k/uL Eosinophils # 0.2 (0-0.7) k/uL Basophils # 0.0 (0-0.2) k/uL PT 10.9 (9.0-12.0) sec INR 1.0 (<1.2) APTT 23.7 (22.0-30.0) sec Sodium (137-145) mmol/L Potassium (3.5-5.1) mmol/L Chloride (98-107) mmol/L Carbon Dioxide (22-30) mmol/L Anion Gap mmol/L BUN (7-17) mg/dL Creatinine (0.52-1.04) mg/dL Est GFR (CKD-EPI)AfAm (>60 ml/min/1.73 sqM) Est GFR (CKD-EPI)NonAf (>60 ml/min/1.73 sqM) Glucose (74-99) mg/dL Plasma Lactic Acid [place] (0.7-2.0) mmol/L Calcium (8.4-10.2) mg/dL Total Bilirubin (0.2-1.3) mg/dL AST (14-36) U/L ALT (4-34) U/L Alkaline Phosphatase (38-126) U/L Total Protein (6.3-8.2) g/dL Albumin (3.5-5.0) g/dL Lipase (23-300) U/L HCG, Quant mIU/mL Urine Color Yellow Urine Appearance Clear (Clear) Urine pH 5.0 (5.0-8.0) Ur Specific [place] 1.023 (1.001-1.035) Urine Protein Negative (Negative) Urine Glucose (UA) Negative (Negative) Urine Ketones Negative (Negative) Urine Blood Negative (Negative) Urine Nitrite Negative (Negative) Urine Bilirubin Negative (Negative) Urine Urobilinogen <2.0 (<2.0) mg/dL Ur Leukocyte Esterase Negative (Negative) 07/26/20 07/26/20 Range/Units 15:25 15:25 WBC (3.8-10.6) k/uL RBC (3.80-5.40) m/uL Hgb (11.4-16.0) gm/dL Hct (34.0-46.0) % MCV (80.0-100.0) fL MCH (25.0-35.0) pg MCHC (31.0-37.0) g/dL RDW (11.5-15.5) % Plt Count (150-450) k/uL MPV Neutrophils % % Lymphocytes % % Monocytes % % Eosinophils % % Basophils % % Neutrophils # (1.3-7.7) k/uL Lymphocytes # (1.0-4.8) k/uL Monocytes # (0-1.0) k/uL Eosinophils # (0-0.7) k/uL Basophils # (0-0.2) k/uL PT (9.0-12.0) sec INR (<1.2) APTT (22.0-30.0) sec Sodium 138 (137-145) mmol/L Potassium 4.2 (3.5-5.1) mmol/L Chloride 106 (98-107) mmol/L Carbon Dioxide 24 (22-30) mmol/L Anion Gap 8 mmol/L BUN 14 (7-17) mg/dL Creatinine 0.53 (0.52-1.04) mg/dL Est GFR (CKD-EPI)AfAm >90 (>60 ml/min/1.73 sqM) Est GFR (CKD-EPI)NonAf >90 (>60 ml/min/1.73 sqM) Glucose 89 (74-99) mg/dL Plasma Lactic Acid [place] 0.8 (0.7-2.0) mmol/L Calcium 9.5 (8.4-10.2) mg/dL Total Bilirubin 0.4 (0.2-1.3) mg/dL AST 21 (14-36) U/L ALT 9 (4-34) U/L Alkaline Phosphatase 50 (38-126) U/L Total Protein 6.9 (6.3-8.2) g/dL Albumin 4.5 (3.5-5.0) g/dL Lipase 91 (23-300) U/L HCG, Quant 340.5 mIU/mL Urine Color Urine Appearance (Clear) Urine pH (5.0-8.0) Ur Specific [place] (1.001-1.035) Urine Protein (Negative) Urine Glucose (UA) (Negative) Urine Ketones (Negative) Urine Blood (Negative) Urine Nitrite (Negative) Urine Bilirubin (Negative) Urine Urobilinogen (<2.0) mg/dL Ur Leukocyte Esterase (Negative) Disposition Clinical Impression: Ectopic , Abdominal pain Disposition: ADMITTED IP TO THIS HOSP Condition: Fair Referrals: Antoine Smith MD [Primary Care Provider] - 1-2 days
[2020-07-26 15:40] LABS: Basophils % (A) 0 %; Eosinophils # (A) 0.2 k/uL (0-0.7); Eosinophils % (A) 1 %; HCT 37.9 % (34.0-46.0); HGB 13.1 gm/dL (11.4-16.0); Lymphocytes # (A) 0.9 k/uL (1.0-4.8); Lymphocytes % (A) 7 %; MCH 31.6 pg (25.0-35.0); MCHC 34.6 g/dL (31.0-37.0); MCV 91.1 fL (80.0-100.0); Mean Platelet Volume 7.1; Monocytes # (A) 0.4 k/uL (0-1.0); Monocytes % (A) 3 %; Neutrophils # (A) 11.1 k/uL (1.3-7.7); Neutrophils % (A) 88 %; Platelet Count 201 k/uL (150-450); RBC 4.17 m/uL (3.80-5.40); RDW 12.5 % (11.5-15.5); WBC 12.6 k/uL (3.8-10.6)
[2020-07-26 15:44] LABS: Appearance,Urine Clear (Clear); Bilirubin,Urine Negative (Negative); Blood,Urine Negative (Negative); Color,Urine Yellow; Glucose,Urine (UA) Negative (Negative); Ketones,Urine Negative (Negative); Leukocyte Esterase,Urine Negative (Negative); Nitrite,Urine Negative (Negative); Protein,Urine Negative (Negative); Specific Gravity,Urine 1.023 (1.001-1.035); Urobilinogen,Urine <2.0 mg/dL (<2.0)
[2020-07-26 15:49] LABS: ALT 9 U/L (4-34); AST 21 U/L (14-36); African American GFR (CKD) >90 (>60 ml/min/1.73 sqM); Albumin 4.5 g/dL (3.5-5.0); Alkaline Phosphatase 50 U/L (38-126); Anion Gap 8 mmol/L; Blood Urea Nitrogen 14 mg/dL (7-17); Calcium 9.5 mg/dL (8.4-10.2); Carbon Dioxide 24 mmol/L (22-30); Chloride 106 mmol/L (98-107); Glucose 89 mg/dL (74-99); Lipase 91 U/L (23-300); Non-African American GFR(CKD) >90 (>60 ml/min/1.73 sqM); Potassium 4.2 mmol/L (3.5-5.1); Sodium 138 mmol/L (137-145); Total Bilirubin 0.4 mg/dL (0.2-1.3); Total Protein 6.9 g/dL (6.3-8.2)
[2020-07-26 16:05] LABS: HCG,Quantitative Serum 340.5 mIU/mL; Partial Thromboplastin Time 23.7 sec (22.0-30.0); Prothrombin Time 10.9 sec (9.0-12.0)
--- NOTE | 2020-07-26 16:31 | US ---
EXAMINATION TYPE: US transvaginal DATE OF EXAM: 07/26/2020 COMPARISON: Prior pelvic ultrasound June 30, 2020 CLINICAL HISTORY: pain, recent ectopic. hx of ectopic in June 2020 patient taking methotrexate. TECHNIQUE: Transvaginal (TV). EXAM MEASUREMENTS: Uterus: 7.8 x 3.7 x 4.7 cm Endometrial Stripe: .9 cm Right Ovary: 2.0 x 1.6 x 1.4 cm Left Ovary: 3.4 x 1.2 x 2.5 cm 1. Uterus: Anteverted wnl 2. Endometrium: wnl 3. Right Ovary: Seen with adjacent mass visualized. 4. Left Ovary: wnl 5. Bilateral Adnexa: Hypoechoic mass seen adjacent to right ovary as seen on previous exam measuring 4.5 x 3.6 x 3.2 cm suspicious for ectopic . 6. Posterior cul-de-sac: Free fluid visualized. Slightly retroflexed heterogeneous uterus. Endometrium stripe measures 9 mm on current study is somew hat poorly defined. Small amount of free fluid in pelvic cul-de-sac on the initial images. Right ovary redemonstrated with adjacent heterogeneous larger solid and cystic mass measuring 4.5 x 3 .6 cm perhaps slightly more prominent from prior. Cystic component does not contain internal echoes o r pole which is felt present on prior. It is larger in size versus prior. Yolk sac also not see n. Was felt present on prior. Left ovary is normal in size. IMPRESSION: New tiny amount of free fluid in pelvic cul-de-sac. Slightly larger right adnexal mass se parate from ovary consistent with ectopic redemonstrated. Prior visualized yolk sac and fet al pole not seen. Cystic component or gestational sac larger.
--- NOTE | 2020-07-26 17:23 | P.HPOB ---
History of Present Illness H&P Date: 07/26/20 Chief Complaint: Right lower quadrant pain, ectopic This is a 29-year-old female with known ectopic that was treated with methotrexate on . Patient had an ultrasound on that date diagnosing ectopic with a right adnexal complex mass entering 2.3 x 1.9 x 2.5. Patient tolerated methotrexate well. Patient did follow up for her initial labs and a drop in her beta hCG was noted. Patient then stopped getting her labs drawn as she states she forgot. Patient states she woke up this morning with increasing mid abdominal pain that went down into her pelvis. Patient states the pain is sharp in nature and she did note some right shoulder pain in addition. Patient presented to the hospital where ultrasound was performed and adnexal area was noted to be bigger at 4+ centimeters. Patient states she's been spotting since receiving methotrexate in no change in bleeding pattern is appreciated. Review of Systems Constitutional: Denies chills, Denies fatigue, Denies fever Ears, nose, mouth and throat: Denies headache Cardiovascular: Denies leg edema Respiratory: Denies dyspnea Gastrointestinal: Denies constipation, Denies diarrhea, Denies nausea, Denies vomiting Genitourinary: Reports as per HPI Past Medical History Past Medical History: Hypertension Additional Past Medical History / Comment(s): adhd. Covid 04/02 History of Any Multi-Drug Resistant Organisms: None Reported Past Surgical History: Section Additional Past Surgical History / Comment(s): lap/ hystoscopy Past Anesthesia/Blood Transfusion Reactions: No Reported Reaction Past Psychological History: Depression Smoking Status: Former smoker Past Alcohol Use History: None Reported Past Drug Use History: None Reported - Past Family History Father Family Medical History: Hypertension Medications and Allergies Home Medications Medication Instructions Recorded Confirmed Type Acetaminophen Tab [Tylenol Tab] 1,000 mg PO Q6H PRN 06/30/20 07/26/20 History HYDROcodone/APAP 5-325MG [[place] 1 tab PO DAILY PRN 06/30/20 07/26/20 History 5-325] Allergies Allergy/AdvReac Type Severity Reaction Status Date / Time dexamethasone [From Decadron] Allergy Swelling/Hi Verified 07/26/20 16:50 ves Exam Osteopathic Statement: *. No significant issues noted on an osteopathic structural exam other than those noted in the History and Physical/Consult. 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 More tenderness is appreciated in the right lower quadrant. Abdomen is noted to be distended. Results Result Diagrams: 07/26/20 15:25 07/26/20 15:25 Abnormal Lab Results - Last 24 Hours (Table) 07/26/20 Range/Units 15:25 WBC 12.6 H (3.8-10.6) k/uL Neutrophils # 11.1 H (1.3-7.7) k/uL Lymphocytes # 0.9 L (1.0-4.8) k/uL Assessment and Plan (1) Abdominal pain Current Visit: Yes Status: Acute Code(s): R10.9 - UNSPECIFIED ABDOMINAL PAIN SNOMED Code(s): 33469069 (2) Ectopic Current Visit: Yes Status: Acute Code(s): O00.90 - UNSPECIFIED ECTOPIC WITHOUT INTRAUTERINE SNOMED Code(s): 13534510 Plan: Patient is counseled on need for operative laparoscopy with possible salpingectomy. Given the size increase in her right adnexal mass. Patient states understanding of need for surgery. Surgery is reviewed and she states "she has had a laparoscopy before " she is counseled on risks of surgery including but not limited to infection, bleeding, damage to bladder, bowel, ureteric injury. Patient states understanding she understands risk of fertility loss if fallopian tube is excised.
[2020-07-26] MEDS ORDERED: IBUPROFEN IV 800 MG in SODIUM CHLORIDE 0.9% 250 ML IV ONE (17:24)
[2020-07-26] MEDS ORDERED: LIDOCAINE 1% INJ 10MG/ML (20 ML MDV) ONE (17:47)
[2020-07-26] MEDS ORDERED: NEOSTIGMINE 1 MG/ML 10 ML VIAL ONE (17:47)
[2020-07-26] MEDS ORDERED: PROPOFOL 10 MG/ML 20 ML VIAL IV ONE (17:47)
[2020-07-26] MEDS ORDERED: SUCCINYLCHOLINE CHLORIDE 100 MG/5 ML SYR IV ONE (17:47)
[2020-07-26] MEDS ORDERED: ONDANSETRON 4 MG/2 ML VIAL ONE (17:47)
[2020-07-26] MEDS ORDERED: GLYCOPYRROLATE 0.2 MG/ML 2 ML VIAL ONE (17:47)
[2020-07-26] MEDS ORDERED: LACTATED RINGERS 1,000 ML IV ONE (17:47)
[2020-07-26] MEDS ORDERED: fentaNYL (PF) 50 MCG/ML 2 ML AMP ONE (17:47)
[2020-07-26] MEDS ORDERED: ROCURONIUM 10 MG/ML (5 ML VIAL) IV ONE (17:47)
[2020-07-26] MEDS ORDERED: MIDAZOLAM 2 MG/2 ML VIAL ONE (17:47)
[2020-07-26] MEDS ORDERED: BUPIVACAINE (PF) 0.25% 30 ML VIAL SQ ONE (18:00)
[2020-07-26] MEDS ORDERED: HYDROmorphone 0.5 MG/0.5 ML SYRINGE IVP ONE ×3 (19:05→19:15)
--- NOTE | 2020-07-26 19:09 | P.OP ---
Date of Procedure: 07/26/20 Preoperative Diagnosis: Ectopic Postoperative Diagnosis: Same, plus pelvic adhesions plus endometriosis Procedure(s) Performed: Operative laparoscopy with right salpingectomy, lysis of adhesions Anesthesia: ERVIN Surgeon: Cherelle Linares Estimated Blood Loss (ml): 10 Urine output (ml): 150 Pathology: other (Right fallopian tube with ) Condition: stable Disposition: PACU Indications for Procedure: 29-year-old female with known ectopic treated with methotrexate on 06/28. Patient had noted decreasing beta hCGs but then discontinued follow-up. Patient presented to the emergency department with complaints of increasing right lower quadrant pain. Patient did note right shoulder pain in addition. Patient was counseled on need for operative laparoscopy giving her symptoms and increased size of mass on ultrasound today. Operative Findings: Right fallopian tube noted to be adherent to the bladder anteriorly. Fundal uterine adhesion to the anterior abdominal wall. Normal-appearing appendix, no rmal-appearing liver and gallbladder. Normal left fallopian tube and ovary. Endometriosis noted in the posterior cul-de-sac, uterosacral ligaments. Description of Procedure: Patient was seen in the emergency department and counseled on surgery. Patient stated "she had a laparoscopy before and had no questions." Risks were reviewed including but not limited to infection, bleeding, damage to bladder/bowel. Patient was taken back to the operating suite where general anesthesia was obtained without difficulty. She was then prepped and draped in normal sterile fashion in the dorsal lithotomy position. A regular catheter was used to drain the bladder clear yellow urine. A speculum was placed the cervix was visualized, the anterior lip of the cervix was grasped with a single-tooth tenaculum and an acorn uterine manipulator was advanced into the cervix as a means to manipulate the uterus through the procedure. Attention was then turned to the patient's abdomen where in the right umbilical fold a small skin incision is made. Through this incision the Veress needles placed. Once the Veress needle was deemed to be the proper position with a drop in CO2 pressure with insufflation of CO2 gas CO2 insufflation was allowed to occur. 3 L of gas were used to obtain pneumoperitoneum. At this time a 5 mm trocar and sleeve with a vendor representatives scope is placed through the skin incision and toward the pneumoperitoneum. The above-noted findings are visualized. An additional port site is placed in the right mid abdomen, this is an 8 mm port and laced under direct visualization. The right ovary and fallopian tube was visualized the LigaSure was placed through the right mid abdominal port and lysis of adhesions was performed around the adnexal mass. Hemostasis was appreciated throughout. The right adnexal mass was elevated and the LigaSure was used to cauterize the mesosalpinx toward the cornual area. Once the adnexal mass was removed hemostasis was noted. An additional port site was placed in the left mid abdomen under direct visualization. An Endo Catch bag was placed into the abdomen the mass was placed into the bag and the bag was removed without difficulty. The pelvis was then copiously irrigated. Hemostasis was appreciated along the pedicle. FloSeal was placed along the pedicle. All instrument removed from the patient's abdomen. The right mid abdomen trocar site was a 10 mm trocar this was placed after the 8 mm trocar was removed for the Endo Catch bag. A UR 6-0 Vicryl was used to close the fascia of the 10 mm port. The skin incisions were closed with 4-0 Vicryl in a subarticular fashion. Steri-Strips and sterile dressings were applied. Attention was then turned to the patient's vaginal vault the uterine manipulator was removed without difficulty, along with the single-tooth tenaculum. Hemostasis was appreciated. The red rubber catheter was noted to be draining clear yellow urine. At this time given the bladder attachment of the adnexal mass a cystoscope was performed. The cystoscope was placed through the urethra toward the bladder bladder bubble was noted both ureteral orifices were noted be spilling clear yel low urine. Cystoscopy fluid was then removed along with the cystoscope. Patient did tolerate procedure well, all counts were noted to be correct 2 at the end of the procedure.
[2020-07-26 19:18] VITALS: RESP 16
[2020-07-26] MEDS: MEPERIDINE 50 MG/ML SYRINGE IVP STA ×2 (19:24→19:26)
[2020-07-26 20:48] VITALS: BP 127/84; PULSE 86; TEMP 98.4
== END 2020-07-26 22:00 | disposition home or self-care (01) ==
LOC: EC 13:55 → 6PED 17:18
PROVIDERS: ADMIT Obstetrics & Gynecology Obstetrics; ATTEND Obstetrics & Gynecology Obstetrics
DX: O00.101 Right tubal pregnancy without intrauterine pregnancy (principal); N80.3 Endometriosis of pelvic peritoneum; N73.6 Female pelvic peritoneal adhesions (postinfective); I10 Essential (primary) hypertension; M25.511 Pain in right shoulder; F90.9 Attention-deficit hyperactivity disorder, unspecified type; F32.9 Major depressive disorder, single episode, unspecified; Z79.891 Long term (current) use of opiate analgesic; Z98.891 History of uterine scar from previous surgery; Z88.8 Allergy status to other drugs, medicaments and biological substances; Z86.16 Personal history of COVID-19; Z87.891 Personal history of nicotine dependence; Z82.49 Family history of ischemic heart disease and other diseases of the circulatory system
CPT/HCPCS: 59151; 96361; 96374; 96375; 99285; 36415; 88305; 80053; 83605; 83690; 85025; 85610; 85730; 81003; 84702; 93975; 76830; G0378; J2250; J2710; J2175; J0690; J2405; J2001; J3010; J0330; J1741; J2704; J1170

== ENCOUNTER 2021-08-09 15:11 | Outpatient (CLI) | payer OTHER ==
[2021-08-09 16:17] LABS: Basophils # (A) 0.1 k/uL (0-0.2); Basophils % (A) 1 %; Eosinophils # (A) 0.3 k/uL (0-0.7); Eosinophils % (A) 3 %; HCT 36.6 % (34.0-46.0); HGB 12.4 gm/dL (11.4-16.0); Lymphocytes # (A) 1.2 k/uL (1.0-4.8); Lymphocytes % (A) 13 %; MCH 31.4 pg (25.0-35.0); MCHC 33.8 g/dL (31.0-37.0); Mean Platelet Volume 7.8; Monocytes # (A) 0.5 k/uL (0-1.0); Monocytes % (A) 5 %; Neutrophils # (A) 6.8 k/uL (1.3-7.7); Neutrophils % (A) 77 %; Platelet Count 260 k/uL (150-450); RBC 3.94 m/uL (3.80-5.40); RDW 12.8 % (11.5-15.5); WBC 8.9 k/uL (3.8-10.6)
[2021-08-09 16:24] LABS: ALT 18 U/L (4-34); AST 28 U/L (14-36); African American GFR (CKD) >90 (>60 ml/min/1.73 sqM); Blood Urea Nitrogen 8 mg/dL (7-17); LDH 572 U/L (313-618); Non-African American GFR(CKD) >90 (>60 ml/min/1.73 sqM); Uric Acid 3.3 mg/dL (3.7-7.4)
[2021-08-09 16:30] LABS: Appearance,Urine Clear (Clear); Bilirubin,Urine Negative (Negative); Blood,Urine Negative (Negative); Color,Urine Light Yellow; Glucose,Urine (UA) Negative (Negative); Ketones,Urine Negative (Negative); Leukocyte Esterase,Urine Negative (Negative); Nitrite,Urine Negative (Negative); PH, Urine 6.5 (5.0-8.0); Protein,Urine Negative (Negative); Specific Gravity,Urine 1.012 (1.001-1.035); Urobilinogen,Urine <2.0 mg/dL (<2.0)
[2021-08-09 16:41] LABS: Creatinine,Urine Random 43.3 mg/dL; Protein/Creatinine Ratio,Urine 0.37
[2021-08-09] MEDS ORDERED: LABETALOL 100 MG TAB PO STA (17:20)
[2021-08-09 21:02] VITALS: BP 153/97; PULSE 104; RESP 16; TEMP 97.3
== END 2021-08-09 18:55 | disposition home or self-care (01) ==
LOC: FBPOP 15:11
PROVIDERS: ATTEND Obstetrics & Gynecology Obstetrics
DX: O13.3 Gestational [pregnancy-induced] hypertension without significant proteinuria, third trimester (principal); Z3A.32 32 weeks gestation of pregnancy; Z88.8 Allergy status to other drugs, medicaments and biological substances; Z87.891 Personal history of nicotine dependence
CPT/HCPCS: 36415; 59025; 81003; 82565; 82570; 83615; 84156; 84450; 84460; 84520; 84550; 85025

== ENCOUNTER 2021-08-29 15:05 | Inpatient (IN) | payer OTHER ==
[2021-08-29 15:48] LABS: Basophils % (A) 0 %; Eosinophils # (A) 0.2 k/uL (0-0.7); Eosinophils % (A) 2 %; HCT 39.1 % (34.0-46.0); HGB 12.6 gm/dL (11.4-16.0); Lymphocytes # (A) 1.5 k/uL (1.0-4.8); Lymphocytes % (A) 14 %; MCH 29.9 pg (25.0-35.0); MCHC 32.1 g/dL (31.0-37.0); Mean Platelet Volume 8.4; Monocytes # (A) 0.5 k/uL (0-1.0); Monocytes % (A) 5 %; Neutrophils # (A) 8.2 k/uL (1.3-7.7); Neutrophils % (A) 77 %; Platelet Count 276 k/uL (150-450); RBC 4.21 m/uL (3.80-5.40); RDW 13.1 % (11.5-15.5); WBC 10.6 k/uL (3.8-10.6)
[2021-08-29 15:56] LABS: Creatinine,Urine Random 45.2 mg/dL; Protein/Creatinine Ratio,Urine 0.619
[2021-08-29 15:57] LABS: Creatinine,Urine Random 45.4 mg/dL
[2021-08-29 15:59] LABS: ALT 13 U/L (4-34); AST 26 U/L (14-36); African American GFR (CKD) >90 (>60 ml/min/1.73 sqM); Blood Urea Nitrogen 7 mg/dL (7-17); LDH 556 U/L (313-618); Magnesium 1.8 mg/dL (1.6-2.3); Non-African American GFR(CKD) >90 (>60 ml/min/1.73 sqM); Uric Acid 4.5 mg/dL (3.7-7.4)
[2021-08-29 16:02] LABS: INR 0.8 (<1.2); Partial Thromboplastin Time 23.6 sec (22.0-30.0); Prothrombin Time 9.5 sec (9.0-12.0)
[2021-08-29 16:03] LABS: Appearance,Urine Clear (Clear); Bilirubin,Urine Negative (Negative); Blood,Urine Negative (Negative); Color,Urine Light Yellow; Glucose,Urine (UA) Negative (Negative); Ketones,Urine Negative (Negative); Leukocyte Esterase,Urine Negative (Negative); Nitrite,Urine Negative (Negative); Protein,Urine Trace (Negative); Urobilinogen,Urine <2.0 mg/dL (<2.0)
[2021-08-29] MEDS ORDERED: LABETALOL 5 MG/ML VIAL MDV IVP PRN ×3 (16:59)
[2021-08-29] MEDS ORDERED: hydrALAZINE HCL 20 MG/ML 1 ML VIAL IVP PRN (16:59)
[2021-08-29] MEDS ORDERED: CITRIC ACID-SODIUM CITRATE 15 ML CUP PO ONE (17:14)
[2021-08-29] MEDS ORDERED: LACTATED RINGERS 1,000 ML IV SCH (17:15)
[2021-08-29] MEDS: LACTATED RINGERS 1,000 ML IV SCH ×3 (17:23→21:44)
[2021-08-29] MEDS ORDERED: OXYTOCIN 30 UNITS/500 ML NS BAG IV ONE (17:47)
[2021-08-29] MEDS ORDERED: ONDANSETRON 4 MG/2 ML VIAL ONE (17:47)
[2021-08-29] MEDS ORDERED: MORPHINE SULFATE (PF) 0.3 MG/0.3 ML SYR ONE (17:47)
[2021-08-29] MEDS ORDERED: diphenhydrAMINE 50 MG/ML 1 ML VIAL IVP PRN ×2 (18:43)
[2021-08-29] MEDS ORDERED: SIMETHICONE 80 MG CHEWABLE PO PRN (18:43)
[2021-08-29] MEDS ORDERED: ZOLPIDEM 5 MG TAB PO PRN (18:43)
[2021-08-29] MEDS ORDERED: diphenhydrAMINE 25 MG CAP PO PRN (18:43)
[2021-08-29] MEDS ORDERED: diphenhydrAMINE 50 MG CAP PO PRN (18:43)
[2021-08-29] MEDS ORDERED: NALOXONE 0.4 MG/ML 1 ML VIAL IV PRN (18:43)
[2021-08-29] MEDS ORDERED: OXYTOCIN 30 UNITS/500 ML NS 30 UNIT in SALINE 1 500ML.BAG IV SCH (18:43)
[2021-08-29] MEDS ORDERED: ONDANSETRON 4 MG/2 ML VIAL IVP PRN (18:43)
[2021-08-29] MEDS ORDERED: CALCIUM GLUCONATE 1 GM/10 ML VIAL IV PRN (18:48)
--- NOTE | 2021-08-29 18:48 | P.OP ---
Date of Procedure: 08/29/21 Preoperative Diagnosis: IUP @ 35 2/7 weeks, pre eclampsia, h/o section Postoperative Diagnosis: same Procedure(s) Performed: repeat section Anesthesia: spinal Surgeon: Cherelle Linares Surface Plate Inspector #1: Orlando Cheema Estimated Blood Loss (ml): 300 IV fluids (ml): 1,000 Urine output (ml): 200 Pathology: other (placenta) Condition: stable Disposition: PACU Indications for Procedure: IUP at 35-2/7 weeks with preeclampsia. Patient had a prior for severe preeclampsia at 36 weeks in 2018. Operative Findings: Normal uterus tubes and ovaries were appreciated, significantly thin lower uterine segment is appreciated. Viable male infant delivered at 181, weight of 5 lbs. 2 oz. Description of Procedure: Patient is taken back to the operating suite where spinal anesthesia was found be adequate by the anesthesia department. She is prepped and draped in normal sterile fashion in the dorsal supine position. A Pfannenstiel skin incision was made with the scalpel and carried through the underlying layer of fascia. The fascia was then incised in the midline and extended laterally. The superior aspect of the fascial incision was then grasped yesy clamps, elevated and underlying rectus muscles dissected off sharply. The inferior aspect the fascial incision was then grasped yesy clamps, elevated and underlying rectus muscles dissected off sharply once again. The rectus muscles were in the midline the peritoneum was identified and entered. Bladder blade was then inserted into the pelvis. Significantly thinned lower uterine segment was appreciated. The bladder was noted to be far from the operating field. A hysterotomy incision was made with the scalpel, amniotomy performed clear fluid was obtained. The infant was encountered in a vertex presentation and delivered in the usual fashion. The umbo cord was doubly clamped 2 and the infant was handed off to waiting RN. A spontaneous cry was noted. The placenta was then delivered manually, the uterus was cleared of all clots and debris. The uterus was delivered from the abdomen and hysterotomy incision was closed with 0 Vicryl in a running locked fashion. A Vicryl then used to perform a second indicating layer. Hemostasis was appreciated. The uterus was then returned to the abdomen and the gutters were cleared of all clots and debris. The uterine incision was inspected and found to be hemostatic. The peritoneum was loosely reapproximated. The rectus muscles were inspected and any points of bleeding were made hemostatic with the Bovie. The fascia was then closed with 0 Vicryl in a running fashion from one lateral edge the midline and the other lateral edge the midline. The subcutaneous tissue was irrigated found to be hemostatic and closed with 3-0 Vicryl in a running fashion. The skin was closed with 4-0 Vicryl in a subcuticular fashion. Steri-Strips and sterile dressings were applied. All counts were correct 2. Patient tolerated procedure well.
--- NOTE | 2021-08-29 18:57 | P.HPOB ---
History of Present Illness H&P Date: 08/29/21 Chief Complaint: IUP @ 35 1/7 weeks, pre eclampsia This is a 30 yo at 35 weeks of gestation EDC 10/02/2021 that was seen in the office today with noted elevated blood pressures 140/100, 148/98. Patient has a history of gestational hypertension and is on labetalol 200 mg twice daily. Blood pressures have been 140s over 90s consistently and labetalol was increased to 200 mg daily last week. Patient states blood pressures have remained elevated at home. The patient denies signs or symptoms of preeclampsia. Patient states she did have a headache or the weekend but that has resolved spontaneously. Patient does note good movement denies vaginal bleeding or loss of fluid. Blood pressures while in OB triage have been significantly elevated 150s to 160s over 100s. Patient has a history of a primary section 01/2018 for preeclampsia with her first child. Blood type of A+, rubella status immune, RPR is nonreactive, B surface engine negative, HIV is negative Review of Systems Constitutional: Reports fatigue, Denies chills, Denies fever Ears, nose, mouth and throat: Denies headache Cardiovascular: Reports leg edema Respiratory: Denies dyspnea Gastrointestinal: Denies constipation, Denies diarrhea, Denies nausea, Denies vomiting Genitourinary: Reports Past Medical History Past Medical History: Hypertension Additional Past Medical History / Comment(s): adhd. Covid 04/02 History of Any Multi-Drug Resistant Organisms: None Reported Past Surgical History: Section Additional Past Surgical History / Comment(s): lap/ hystoscopy Past Anesthesia/Blood Transfusion Reactions: No Reported Reaction Smoking Status: Vaper - Past Family History Father Family Medical History: Hypertension Medications and Allergies Home Medications Medication Instructions Recorded Confirmed Type Vit No.179/Iron/Folic 1 tab PO DAILY 08/09/21 08/29/21 History [ Tablet] buPROPion XL [Wellbutrin XL] 150 mg PO DAILY 08/09/21 08/29/21 History Labetalol [Trandate] 200 mg PO BID 08/29/21 08/29/21 History Allergies Allergy/AdvReac Type Severity Reaction Status Date / Time dexamethasone [From Decadron] Allergy Swelling/Hi Verified 08/29/21 15:21 ves Exam Osteopathic Statement: *. No significant issues noted on an osteopathic structural exam other than those noted in the History and Physical/Consult. Intake and Output 08/29/21 08/29/21 08/29/21 06:59 14:59 22:59 Other: Weight 82.1 kg Targeted physical exam is performed on this date and pr internship a well-nourished well-developed female in no acute distress, breathing is noted to nonlabored, heart has a regular rate and rhythm abdomen is gravid and nontender, heart tones are noted to be category 1 and she is not nanda. Cervical exam is deferred Results Result Diagrams: 08/29/21 15:36 08/29/21 15:36 Abnormal Lab Results - Last 24 Hours (Table) 08/29/21 08/29/21 08/29/21 Range/Units 15:35 15:35 15:36 Neutrophils # 8.2 H (1.3-7.7) k/uL Fibrinogen (200-500) mg/dL Creatinine (0.52-1.04) mg/dL Urine Protein Trace H (Negative) U Random Total Protein 28 H (<12) mg/dL 08/29/21 08/29/21 Range/Units 15:36 15:36 Neutrophils # (1.3-7.7) k/uL Fibrinogen 628 H (200-500) mg/dL Creatinine 0.46 L (0.52-1.04) mg/dL Urine Protein (Negative) U Random Total Protein (<12) mg/dL Assessment and Plan (1) 35 weeks gestation of Current Visit: Yes Status: Acute Code(s): Z3A.35 - 35 WEEKS GESTATION OF SNOMED Code(s): 56342444 (2) H/O section Current Visit: Yes Status: Acute Code(s): Z98.891 - HISTORY OF UTERINE SCAR FROM PREVIOUS SURGERY SNOMED Code(s): 863455661 (3) Pre-eclampsia Current Visit: No Status: Acute Code(s): O14.90 - UNSPECIFIED PRE-ECLAMPSIA, UNSPECIFIED TRIMESTER SNOMED Code(s): 571183978 Plan: 30yo at 35 2/7 weeks of gestation with dx of pre eclampsia. Patient is admitted to labor and delivery, preeclampsia labs are noted to be essentially normal with a significant elevation of her protein creatinine ratio, on 6/30 it was 0.3 elevated to 0.6 today. Patient is counseled on need for repeat section secondary to diagnosis of preeclampsia. Patient states understanding of the need for repeat section today. Prematurity is discussed with patient need for the to be observed in the nursery is discussed questions are answered. Patient states understanding. We'll plan on magnesium GTT after delivery.
[2021-08-29] MEDS ORDERED: MAGNESIUM SULFATE-WATER PMX 4 GM in WATER FOR INJECTION 1 100ML.BAG IVPB ONE (19:15)
[2021-08-29] MEDS: MAGNESIUM SULFATE-WATER PMX 20 GM in WATER FOR INJECTION 1 500ML.BAG IV SCH (19:38)
[2021-08-29] MEDS: LABETALOL 200 MG TAB PO SCH (20:16)
[2021-08-29] MEDS: ACETAMINOPHEN IV (For NPO) 1,000 MG in EMPTY BAG 1 BAG IVPB SCH (21:42)
[2021-08-29] MEDS: SENNOSIDES-DOCUSATE SODIUM 1 EACH TAB PO SCH (21:43)
[2021-08-29] MEDS: ACETAMINOPHEN TAB 500 MG TAB PO SCH (21:45)
[2021-08-30] MEDS: IBUPROFEN 600 MG TAB PO SCH ×3 (00:57→19:01)
[2021-08-30] MEDS: ACETAMINOPHEN IV (For NPO) 1,000 MG in EMPTY BAG 1 BAG IVPB SCH (03:16)
[2021-08-30] MEDS: LACTATED RINGERS 1,000 ML IV SCH ×2 (04:07→11:19)
[2021-08-30] MEDS: IBUPROFEN IV 800 MG in SODIUM CHLORIDE 0.9% 250 ML IV SCH ×2 (04:08→08:20)
[2021-08-30] MEDS: ACETAMINOPHEN TAB 500 MG TAB PO SCH ×3 (05:04→21:51)
[2021-08-30] MEDS: MAGNESIUM SULFATE-WATER PMX 20 GM in WATER FOR INJECTION 1 500ML.BAG IV SCH ×2 (05:38→15:33)
--- NOTE | 2021-08-30 06:10 | P.PN ---
Progress Note - Text Progress Note Date: 08/30/21 Patient doing well. Pain 4/10. Denies paresthesia or weakness. Denies pruritis or headache. Back - spinal site clean and dry POD#1 s/p w/ spinal duramorph - encourage ambulation
[2021-08-30] MEDS: LABETALOL 200 MG TAB PO SCH ×2 (07:35→21:50)
[2021-08-30] MEDS: SENNOSIDES-DOCUSATE SODIUM 1 EACH TAB PO SCH ×2 (07:35→21:50)
[2021-08-30 08:13] LABS: Basophils % (A) 0 %; Eosinophils # (A) 0.2 k/uL (0-0.7); Eosinophils % (A) 2 %; HCT 36.6 % (34.0-46.0); HGB 12.2 gm/dL (11.4-16.0); Lymphocytes # (A) 1.3 k/uL (1.0-4.8); Lymphocytes % (A) 14 %; MCH 31.3 pg (25.0-35.0); MCHC 33.3 g/dL (31.0-37.0); MCV 93.9 fL (80.0-100.0); Mean Platelet Volume 8.2; Monocytes # (A) 0.4 k/uL (0-1.0); Monocytes % (A) 4 %; Neutrophils # (A) 7.3 k/uL (1.3-7.7); Neutrophils % (A) 77 %; Platelet Count 249 k/uL (150-450); RDW 13.7 % (11.5-15.5); WBC 9.4 k/uL (3.8-10.6)
[2021-08-30 08:28] LABS: ALT 13 U/L (4-34); AST 30 U/L (14-36); African American GFR (CKD) >90 (>60 ml/min/1.73 sqM); Blood Urea Nitrogen 6 mg/dL (7-17); Non-African American GFR(CKD) >90 (>60 ml/min/1.73 sqM); Uric Acid 4.4 mg/dL (3.7-7.4)
[2021-08-30] MEDS: PRENATAL VIT-IRON-FOLIC ACID 1 EACH TABLET PO SCH (08:38)
[2021-08-30] MEDS: buPROPion XL 150 MG TAB.ER.24H PO SCH (08:38)
--- NOTE | 2021-08-30 08:46 | P.PNOBGPC ---
Subjective - Subjective Principal diagnosis: Postop day 1, repeat section secondary to preeclampsia Interval history: Patient is doing well this morning. Magnesium gtt continues to run. Patient denies signs or symptoms of preeclampsia. Fuentes catheter remains draining clear yellow urine. She states her pain is well-controlled. She is pumping. is doing well in the nursery, weaning off oxygen. She is tolerating a regular diet without nausea or vomiting. Patient reports: Reports appetite normal, Reports pain well controlled [place]: doing well (In special care nursery) Objective - Vital Signs Latest vital signs: Vital Signs Temp Pulse Pulse Resp BP Pulse Ox 08/30/21 08:00 80 16 137/80 97 08/30/21 07:00 98.0 F 73 16 121/77 98 08/30/21 06:00 71 16 120/79 98 08/30/21 05:00 72 16 157/93 98 08/30/21 04:00 71 16 157/99 99 08/30/21 03:00 68 16 137/86 100 08/30/21 02:00 74 16 122/77 100 08/30/21 01:00 72 16 125/78 98 08/30/21 00:00 97.9 F 72 18 132/86 98 08/29/21 23:00 76 18 135/84 98 08/29/21 22:00 88 18 135/87 97 08/29/21 21:00 81 16 153/102 99 08/29/21 20:45 78 18 162/99 98 08/29/21 20:15 71 18 160/101 98 08/29/21 19:45 69 18 150/94 98 08/29/21 19:30 75 18 144/90 97 08/29/21 19:15 80 18 148/95 98 08/29/21 19:00 97.0 F L 79 16 144/86 98 08/29/21 18:35 97.0 F L 78 16 138/90 98 08/29/21 17:03 97.5 F L 77 16 166/101 96 Intake and Output 08/29/21 08/30/21 08/30/21 22:59 06:59 14:59 Intake Total 500 Output Total 380 0428 400 Balance -598 -2919 -400 Intake: Intake, IV Titration 500 Amount Magnesium Sulfate-Water 500 Pmx 20 gm In Water For Injection 1 500ml.bag @ 2 GM/HR 50 mls/hr IV .Q10H [facility] Rx#:[id number] Output: Urine 380 1550 400 Output, Quantitative 95 Blood Loss Other: Voiding Method Indwelling Catheter Weight 82.1 kg - Exam Extremities: Present: edema Abdomen: Present: normal appearance Incision: Present: normal, dry, intact Uterus: Present: normal, firm - Labs Labs: Abnormal Lab Results - Last 24 Hours (Table) 08/29/21 08/29/21 08/29/21 Range/Units 15:35 15:35 15:36 Neutrophils # 8.2 H (1.3-7.7) k/uL Fibrinogen (200-500) mg/dL BUN (7-17) mg/dL Creatinine (0.52-1.04) mg/dL Urine Protein Trace H (Negative) U Random Total Protein 28 H (<12) mg/dL 08/29/21 08/29/21 08/30/21 Range/Units 15:36 15:36 07:28 Neutrophils # (1.3-7.7) k/uL Fibrinogen 628 H 545 H (200-500) mg/dL BUN (7-17) mg/dL Creatinine 0.46 L (0.52-1.04) mg/dL Urine Protein (Negative) U Random Total Protein (<12) mg/dL 08/30/21 Range/Units 07:28 Neutrophils # (1.3-7.7) k/uL Fibrinogen (200-500) mg/dL BUN 6 L (7-17) mg/dL Creatinine (0.52-1.04) mg/dL Urine Protein (Negative) U Random Total Protein (<12) mg/dL Assessment and Plan (1) 35 weeks gestation of Current Visit: Yes Status: Acute Code(s): Z3A.35 - 35 WEEKS GESTATION OF SNOMED Code(s): 05815015 (2) H/O section Current Visit: Yes Status: Acute Code(s): Z98.891 - HISTORY OF UTERINE SCAR FROM PREVIOUS SURGERY SNOMED Code(s): 063665102 (3) Pre-eclampsia Current Visit: No Status: Acute Code(s): O14.90 - UNSPECIFIED PRE-ECLAMPSIA, UNSPECIFIED TRIMESTER SNOMED Code(s): 509893521 Plan: 30-year-old G3 now P0 to 12 status post repeat section for preeclampsia with severe features. Patient's blood pressures were noted to be labile overnight, improved this morning after 200 mg of labetalol by mouth last evening. Preeclampsia labs this morning were reviewed and normal. I will plan to continue magnesium infusion for 24 hours postdelivery.
[2021-08-31] MEDS: IBUPROFEN 600 MG TAB PO SCH ×5 (01:52→19:54)
[2021-08-31] MEDS: ACETAMINOPHEN TAB 500 MG TAB PO SCH ×5 (04:55→23:52)
[2021-08-31] MEDS: PRENATAL VIT-IRON-FOLIC ACID 1 EACH TABLET PO SCH (07:52)
[2021-08-31] MEDS: LABETALOL 200 MG TAB PO SCH ×2 (07:52→19:53)
[2021-08-31] MEDS: buPROPion XL 150 MG TAB.ER.24H PO SCH (09:23)
[2021-08-31] MEDS: SENNOSIDES-DOCUSATE SODIUM 1 EACH TAB PO SCH ×2 (09:23→19:53)
--- NOTE | 2021-08-31 09:42 | P.PNOBGPC ---
Subjective - Subjective Principal diagnosis: Postop day 2, repeat section, preeclampsia Interval history: Patient is doing well postoperatively. Magnesium was discontinued last evening. She states she is feeling well this morning. She states her pain is controlled. She is tolerating a regular diet. She states her lochia is minimal. She is pumping. She states infant is doing well in the nursery. Patient reports: Reports appetite normal, Reports voiding normally, Reports pain well controlled, Reports ambulating normally [place]: doing well (In special care nursery) Objective - Vital Signs Latest vital signs: Vital Signs Temp Pulse Resp BP Pulse Ox 08/31/21 07:56 98.0 F 87 16 142/90 98 08/31/21 03:23 97.7 F 89 16 142/87 97 08/31/21 00:00 98.1 F 84 18 132/88 97 08/30/21 20:30 97.8 F 89 18 155/97 99 08/30/21 18:00 87 18 142/83 100 08/30/21 17:00 90 18 126/75 99 08/30/21 16:00 78 16 130/83 08/30/21 14:00 76 16 136/90 08/30/21 13:00 98.0 F 71 16 119/73 98 08/30/21 12:00 72 16 136/80 98 08/30/21 11:00 98.2 F 76 16 124/76 99 08/30/21 10:00 98.3 F 74 16 111/74 98 Intake and Output 08/30/21 08/31/21 08/31/21 22:59 06:59 14:59 Intake Total 495.833 Output Total 1000 400 Balance -504.167 -400 Intake: Intake, IV Titration 495.833 Amount Magnesium Sulfate-Water 495.833 Pmx 20 gm In Water For Injection 1 500ml.bag @ 2 GM/HR 50 mls/hr IV .Q10H [facility] Rx#:[id number] Output: Urine 1000 400 Other: Voiding Method Indwelling Catheter - Exam Extremities: Present: normal, edema Abdomen: Present: normal appearance, soft Incision: Present: dry Uterus: Present: normal, firm Assessment and Plan (1) 35 weeks gestation of Current Visit: Yes Status: Acute Code(s): Z3A.35 - 35 WEEKS GESTATION OF SNOMED Code(s): 33586217 (2) H/O section Current Visit: Yes Status: Acute Code(s): Z98.891 - HISTORY OF UTERINE SCAR FROM PREVIOUS SURGERY SNOMED Code(s): 579149900 (3) Pre-eclampsia Current Visit: No Status: Acute Code(s): O14.90 - UNSPECIFIED PRE-ECLAMPSIA, UNSPECIFIED TRIMESTER SNOMED Code(s): 894743164 (4) S/P section Current Visit: Yes Status: Acute Code(s): Z98.891 - HISTORY OF UTERINE SCAR FROM PREVIOUS SURGERY SNOMED Code(s): 946452304 Plan: 30-year-old to 12 status post repeat section for preeclampsia. Patient is doing well postoperatively. Plan to continue routine postoperative care
[2021-08-31] MEDS: LACTATED RINGERS 1,000 ML IV SCH (19:40)
[2021-09-01] MEDS: IBUPROFEN 600 MG TAB PO SCH ×5 (02:05→23:12)
[2021-09-01] MEDS: ACETAMINOPHEN TAB 500 MG TAB PO SCH ×4 (07:48→19:41)
[2021-09-01] MEDS: SENNOSIDES-DOCUSATE SODIUM 1 EACH TAB PO SCH ×2 (08:52→19:42)
[2021-09-01] MEDS: PRENATAL VIT-IRON-FOLIC ACID 1 EACH TABLET PO SCH (08:53)
[2021-09-01] MEDS: buPROPion XL 150 MG TAB.ER.24H PO SCH (08:53)
[2021-09-01] MEDS: LABETALOL 200 MG TAB PO SCH ×2 (08:55→19:42)
--- NOTE | 2021-09-01 09:48 | P.PNOBGPC ---
Subjective - Subjective Principal diagnosis: Postop day 3, repeat secondary to preeclampsia Interval history: Patient is doing well postoperatively. On this postoperative day #3 she is ambulating and voiding without difficulty she states her pain is well- controlled. Her blood pressures have been labile but controlled with labetalol. no new concerns today Patient reports: Reports appetite normal, Reports voiding normally, Reports pain well controlled : doing well (In special care nursery) Objective - Vital Signs Latest vital signs: Vital Signs Temp Pulse Resp BP Pulse Ox 09/01/21 08:58 143/85 09/01/21 08:00 97.9 F 98 16 98/62 09/01/21 00:00 97.7 F 97 16 112/68 96 08/31/21 20:00 104 H 152/78 08/31/21 16:00 98.1 F 82 16 132/86 Intake and Output 08/31/21 09/01/21 09/01/21 22:59 06:59 14:59 Other: Voiding Method Toilet Indwelling Catheter Weight 80.286 kg - Exam Extremities: Present: normal, edema Abdomen: Present: normal appearance, soft Incision: Present: normal, dry, intact Uterus: Present: normal, firm Assessment and Plan (1) 35 weeks gestation of Current Visit: Yes Status: Acute Code(s): Z3A.35 - 35 WEEKS GESTATION OF SNOMED Code(s): 58258181 (2) H/O section Current Visit: Yes Status: Acute Code(s): Z98.891 - HISTORY OF UTERINE SCAR FROM PREVIOUS SURGERY SNOMED Code(s): 443771636 (3) Pre-eclampsia Current Visit: No Status: Acute Code(s): O14.90 - UNSPECIFIED PRE-ECLAMPSIA, UNSPECIFIED TRIMESTER SNOMED Code(s): 502856817 (4) S/P section Current Visit: Yes Status: Acute Code(s): Z98.891 - HISTORY OF UTERINE SCAR FROM PREVIOUS SURGERY SNOMED Code(s): 776417898 Plan: Patient continues to do well post operatively remains in the nursery therefore she wishes to stay until tomorrow. We'll continue to monitor blood pressures and adjust labetalol if needed. Anticipate discharge home tomorrow.
[2021-09-01 20:31] VITALS: RESP 16
[2021-09-02] MEDS: ACETAMINOPHEN TAB 500 MG TAB PO SCH ×2 (04:49→08:40)
[2021-09-02] MEDS: IBUPROFEN 600 MG TAB PO SCH ×2 (04:51→08:40)
[2021-09-02] MEDS: LABETALOL 200 MG TAB PO SCH (08:40)
[2021-09-02] MEDS: PRENATAL VIT-IRON-FOLIC ACID 1 EACH TABLET PO SCH (08:40)
[2021-09-02] MEDS: buPROPion XL 150 MG TAB.ER.24H PO SCH (08:40)
[2021-09-02 08:44] VITALS: BP 142/85; PULSE 94; TEMP 98
--- NOTE | 2021-09-02 09:22 | P.DS ---
Providers Date of admission: 08/29/21 16:59 Expected date of discharge: 09/02/21 Attending physician: Cherelle Linarse Primary care physician: Stated None - Discharge Diagnosis(es) (1) 35 weeks gestation of Current Visit: Yes Status: Acute (2) H/O section Current Visit: Yes Status: Acute (3) Pre-eclampsia Current Visit: No Status: Acute (4) S/P section Current Visit: Yes Status: Acute Hospital Course: This is a 30-year-old to 12 that presented to labor and delivery from the office at 35 weeks of gestation, with noted elevated blood pressures. Patient had been receiving routine care with a diagnosis of gestational hypertension for which she was taking labetalol 200 mg twice daily. Patient states blood pressures have been elevated home prior to her visit, at her routine visit her blood pressures 150's 160s over 100s and significantly higher once on OB triage. Patient was counseled on the need for repeat section secondary to a diagnosis of preeclampsia. Patient was taken back for repeat section without difficulty. For full details on the please see the operative report. Patient was placed on magnesium post delivery for 24 hours. Patient's preeclampsia labs were essentially negative. Patient's blood pressures have been consistently 130 to 140s over 80s-90s. Patient denies signs or symptoms of preeclampsia. Patient delivered a viable male infant at 1811, weight of 5 lbs. 2 oz. Patient is doing well this morning on postoperative day #4. She is ambulating and voiding without difficulty. She denies signs or symptoms of preeclampsia. Her blood pressures have been 130s to 140s over 80s to 90s. Patient continues to take her labetalol 200 mg by mouth twice daily. Patient would like discharge home. Infant does remain in the nursery for observation. Patient Condition at Discharge: Good Plan - Discharge Summary New Discharge Prescriptions: No Action buPROPion XL [Wellbutrin XL] 150 mg PO DAILY Vit No.179/Iron/Folic [ Tablet] 1 tab PO DAILY Labetalol [Trandate] 200 mg PO BID Discharge Medication List Vit No.179/Iron/Folic [ Tablet] 1 tab PO DAILY 08/09/21 [History] buPROPion XL [Wellbutrin XL] 150 mg PO DAILY 08/09/21 [History] Labetalol [Trandate] 200 mg PO BID 08/29/21 [History] Follow up Appointment(s)/Referral(s): Cherelle Linares DO [Doctor of Osteopathic Medicine] - 1 Week Patient Instructions/Handouts: (DC), (GEN) Activity/Diet/Wound Care/Special Instructions: Patient is counseled on signs and symptoms of preeclampsia should she have any headache consistently elevated blood pressures or concerns she is urged to return to the hospital for evaluation. Patient is asked to make a follow-up appointment in 1 week for blood pressure check. Patient states understanding. She wishes to be discharged home. [id number] ibuprofen and Tylenol are encouraged for pain control.
== END 2021-09-02 10:40 | disposition home or self-care (01) | DRG 788 ==
LOC: FBPOP 15:05 → 4FBP 16:59
PROVIDERS: ADMIT Obstetrics & Gynecology Obstetrics; ATTEND Obstetrics & Gynecology Obstetrics
PROC: 10D00Z1 Extraction of Products of Conception, Low, Open Approach (ICD-10-PCS; principal; 2021-08-29 17:36)
DX: O14.94 Unspecified pre-eclampsia, complicating childbirth (principal); O34.211 Maternal care for low transverse scar from previous cesarean delivery; Z37.0 Single live birth; Z3A.35 35 weeks gestation of pregnancy; Z28.310 Unvaccinated for COVID-19; Z86.16 Personal history of COVID-19; F90.9 Attention-deficit hyperactivity disorder, unspecified type; O99.344 Other mental disorders complicating childbirth; Z79.899 Other long term (current) drug therapy; Z82.49 Family history of ischemic heart disease and other diseases of the circulatory system; Z28.21 Immunization not carried out because of patient refusal
CPT/HCPCS: 59025; 81003; 82565; 82570; 83615; 83735; 84156; 84450; 84460; 84520; 84550; 85025; 85384; 85610; 85730; 86850; 86900; 86901; 88307; 96374; 99215

== ENCOUNTER 2021-09-03 14:39 | Observation (INO) | payer OTHER ==
[2021-09-03] MEDS ORDERED: LABETALOL 100 MG TAB PO STA (15:19)
[2021-09-03 15:50] LABS: Basophils % (A) 1 %; Eosinophils # (A) 0.3 k/uL (0-0.7); Eosinophils % (A) 4 %; HCT 36.4 % (34.0-46.0); HGB 12.3 gm/dL (11.4-16.0); Lymphocytes # (A) 1.4 k/uL (1.0-4.8); Lymphocytes % (A) 16 %; MCH 32.2 pg (25.0-35.0); MCHC 33.9 g/dL (31.0-37.0); MCV 94.8 fL (80.0-100.0); Mean Platelet Volume 7.5; Monocytes # (A) 0.4 k/uL (0-1.0); Monocytes % (A) 4 %; Neutrophils % (A) 72 %; Platelet Count 303 k/uL (150-450); RBC 3.84 m/uL (3.80-5.40); RDW 13.5 % (11.5-15.5); WBC 8.3 k/uL (3.8-10.6)
[2021-09-03 15:55] LABS: INR 0.9 (<1.2); Partial Thromboplastin Time 22.8 sec (22.0-30.0)
[2021-09-03 16:09] LABS: ALT 40 U/L (4-34); AST 42 U/L (14-36); African American GFR (CKD) >90 (>60 ml/min/1.73 sqM); Blood Urea Nitrogen 17 mg/dL (7-17); LDH 666 U/L (313-618); Non-African American GFR(CKD) >90 (>60 ml/min/1.73 sqM); Uric Acid 5.3 mg/dL (3.7-7.4)
[2021-09-03] MEDS ORDERED: hydrALAZINE HCL 20 MG/ML 1 ML VIAL IVP PRN (16:35)
[2021-09-03] MEDS ORDERED: LABETALOL 5 MG/ML VIAL MDV IVP PRN ×3 (16:35)
[2021-09-03] MEDS: IBUPROFEN 600 MG TAB PO PRN ×2 (17:04→23:40)
[2021-09-03] MEDS: LACTATED RINGERS 1,000 ML IV SCH (17:10)
[2021-09-04] MEDS: ACETAMINOPHEN TAB 500 MG TAB PO PRN ×3 (02:18→21:26)
[2021-09-04] MEDS: LACTATED RINGERS 1,000 ML IV SCH (04:10)
[2021-09-04 05:15] LABS: Basophils % (A) 1 %; Eosinophils # (A) 0.4 k/uL (0-0.7); Eosinophils % (A) 5 %; HCT 36.8 % (34.0-46.0); HGB 11.9 gm/dL (11.4-16.0); Lymphocytes # (A) 1.7 k/uL (1.0-4.8); Lymphocytes % (A) 22 %; MCH 30.2 pg (25.0-35.0); MCHC 32.4 g/dL (31.0-37.0); MCV 93.3 fL (80.0-100.0); Mean Platelet Volume 7.9; Monocytes # (A) 0.4 k/uL (0-1.0); Monocytes % (A) 6 %; Neutrophils % (A) 66 %; Platelet Count 306 k/uL (150-450); RBC 3.94 m/uL (3.80-5.40); RDW 13.1 % (11.5-15.5); WBC 7.6 k/uL (3.8-10.6)
[2021-09-04 05:26] LABS: ALT 32 U/L (4-34); AST 29 U/L (14-36); African American GFR (CKD) >90 (>60 ml/min/1.73 sqM); Blood Urea Nitrogen 13 mg/dL (7-17); LDH 539 U/L (313-618); Non-African American GFR(CKD) >90 (>60 ml/min/1.73 sqM)
[2021-09-04 05:30] LABS: INR 0.9 (<1.2); Prothrombin Time 10.3 sec (9.0-12.0)
[2021-09-04] MEDS: IBUPROFEN 600 MG TAB PO PRN ×3 (06:26→23:45)
[2021-09-04] MEDS: PRENATAL VIT-IRON-FOLIC ACID 1 EACH TABLET PO SCH (09:18)
[2021-09-04] MEDS: LABETALOL 100 MG TAB PO SCH ×3 (09:18→21:26)
[2021-09-04] MEDS: buPROPion XL 150 MG TAB.ER.24H PO SCH (09:19)
--- NOTE | 2021-09-04 12:39 | P.HPOB ---
History of Present Illness H&P Date: 09/04/21 Chief Complaint: Preeclampsia This is a 30-year-old that presented to labor and delivery triage 5 days with complaints of elevated blood pressures at home and headache. Patient states she took Tylenol approximately a half an hour prior to presentation to triage. Patient has been taking labetalol 200 mg twice daily at home since discharge from the hospital. Patient call the office with concerns of elevated blood pressures. Patient was instructed to return to OB triage for evaluation of her elevated blood pressures. Review of Systems Constitutional: Reports fatigue, Denies chills, Denies fever Ears, nose, mouth and throat: Reports headache Cardiovascular: Denies chest pain Respiratory: Denies dyspnea Gastrointestinal: Denies constipation, Denies diarrhea, Denies nausea, Denies vomiting Genitourinary: Denies Past Medical History Past Medical History: Hypertension Additional Past Medical History / Comment(s): adhd. Covid 04/02 History of Any Multi-Drug Resistant Organisms: None Reported Past Surgical History: Section Additional Past Surgical History / Comment(s): lap/ hystoscopy Past Anesthesia/Blood Transfusion Reactions: No Reported Reaction Past Psychological History: ADD/ADHD, Depression Smoking Status: Vaper Past Alcohol Use History: None Reported Past Drug Use History: None Reported - Past Family History Father Family Medical History: Hypertension Medications and Allergies Home Medications Medication Instructions Recorded Confirmed Type Vit No.179/Iron/Folic 1 tab PO DAILY 08/09/21 08/29/21 History [ Tablet] buPROPion XL [Wellbutrin XL] 150 mg PO DAILY 08/09/21 08/29/21 History Labetalol [Trandate] 200 mg PO BID 08/29/21 08/29/21 History Allergies Allergy/AdvReac Type Severity Reaction Status Date / Time dexamethasone [From Decadron] Allergy Swelling/Hi Verified 09/03/21 14:53 ves Exam Osteopathic Statement: *. No significant issues noted on an osteopathic struc tural exam other than those noted in the History and Physical/Consult. Vital Signs Temp Pulse Resp BP Pulse Ox 09/04/21 08:15 97.9 F 85 16 133/88 97 09/04/21 04:00 98.2 F 73 16 144/85 09/03/21 23:58 98.1 F 89 16 133/86 09/03/21 22:00 89 16 143/88 09/03/21 19:20 98.2 F 89 16 147/100 98 09/03/21 19:06 154/105 09/03/21 18:45 173/110 09/03/21 18:15 159/107 09/03/21 17:45 159/104 09/03/21 17:15 163/103 09/03/21 17:01 98.3 F 80 18 162/103 Intake and Output 09/03/21 09/04/21 09/04/21 22:59 06:59 14:59 Other: # Voids 1 1 Weight 76.476 kg Targeted physical exam is done on this date and bundle tier and labeler a well-nourished well-developed non female in no acute distress, breathing is noted to be nonlabored, heart has a regular rhythm, abdomen is soft and nontender Results Result Diagrams: 09/04/21 04:58 09/04/21 04:58 Abnormal Lab Results - Last 24 Hours (Table) 09/03/21 09/03/21 09/04/21 Range/Units 15:21 15:21 04:58 Fibrinogen 544 H (200-500) mg/dL Creatinine 0.49 L (0.52-1.04) mg/dL AST 42 H (14-36) U/L ALT 40 H (4-34) U/L Lactate Dehydrogenase 666 H (313-618) U/L Assessment and Plan (1) Pre-eclampsia Current Visit: No Status: Acute Code(s): O14.90 - UNSPECIFIED PRE-ECLAMPSIA, UNSPECIFIED TRIMESTER SNOMED Code(s): 258440533 Plan: 30-year-old postop day 5 from repeat secondary to preeclampsia. Patient was initially placed on magnesium therapy after delivery on Friday. Blood pressures were normalizing prior to discharge on labetalol 200 mg twice daily. Blood pressures 2130s over 80s prior to discharge. Patient reports presented on Friday with blood pressures of 160s over 100s. While in triage patient's blood pressures continued to be elevated therefore preeclampsia labs were ordered. Preeclampsia labs were noted to have elevations in her AST/ALTs. Patient was counseled on need for admission secondary to lab work alterations. Patient stated understanding. We will treat with Procardia 60 mg XL, as she see ms to not be responding well to labetalol. If no response we'll continue with labetalol pathway.
--- NOTE | 2021-09-04 12:41 | P.PN ---
Subjective Progress Note Date: 09/04/21 Principal diagnosis: Preeclampsia 30-year-old postop day 6 from a repeat section secondary to preeclampsia. Patient had been taking labetalol 200 mg at home with uncontr olled blood pressures. Patient noted a headache and reached up to the office, she was instructed to head to the hospital. Patient was seen in triage where lab alterations and elevated blood pressures were noted therefore patient was admitted for observation. Patient's Doris all those have subsequently been increased to 300 mg 3 times a day with so far good control of her blood pressures. Patient states she slept well overnight. She denies headache. She states that she is feeling well overall. She denies nausea or vomiting. Objective - Vital Signs Vital signs: Vital Signs Temp 98.3 F 09/04/21 12:36 Pulse 84 09/04/21 12:36 Resp 18 09/04/21 12:36 BP 120/80 09/04/21 12:36 Pulse Ox 97 09/04/21 12:36 FiO2 Intake & Output 09/03/21 09/04/21 09/04/21 18:59 06:59 18:59 Weight 76.476 kg Other: # Voids 1 1 - Constitutional General appearance: Present: average body habitus, cooperative, no acute distress - Respiratory Respiratory: bilateral: CTA - Cardiovascular Rhythm: regular - Labs CBC & Chem 7: 09/04/21 04:58 09/04/21 04:58 Labs: Abnormal Lab Results - Last 24 Hours (Table) 09/03/21 09/03/21 09/04/21 Range/Units 15:21 15:21 04:58 Fibrinogen 544 H (200-500) mg/dL Creatinine 0.49 L (0.52-1.04) mg/dL AST 42 H (14-36) U/L ALT 40 H (4-34) U/L Lactate Dehydrogenase 666 H (313-618) U/L Assessment and Plan (1) Pre-eclampsia Current Visit: No Status: Acute Code(s): O14.90 - UNSPECIFIED PRE-ECLAMPSIA, UNSPECIFIED TRIMESTER SNOMED Code(s): 720501552 Plan: Patient is doing well with increased labetalol dose, no response from Procardia yesterday. We'll continue with labetalol 300 mg 3 times a day. Will observe blood pressures given this increase in dose. Patient states understanding all questions are answered. We'll continue close observation. Labs were reviewed this morning elevated liver function tests were noted to be normal this morning.
[2021-09-05] MEDS: ACETAMINOPHEN TAB 500 MG TAB PO PRN (04:47)
[2021-09-05] MEDS: LACTATED RINGERS 1,000 ML IV SCH ×2 (06:13→10:47)
[2021-09-05] MEDS: PRENATAL VIT-IRON-FOLIC ACID 1 EACH TABLET PO SCH (08:43)
[2021-09-05] MEDS: LABETALOL 100 MG TAB PO SCH (08:43)
[2021-09-05] MEDS: buPROPion XL 150 MG TAB.ER.24H PO SCH (08:43)
--- NOTE | 2021-09-05 08:55 | P.DS ---
Providers Date of admission: 09/04/21 14:36 Expected date of discharge: 09/05/21 Attending physician: Cherelle Linares Primary care physician: Stated None - Discharge Diagnosis(es) (1) Pre-eclampsia Current Visit: No Status: Acute Hospital Course: This is a 30-year-old female that presented to labor and delivery triage at 5 days with complaints of elevated blood pressure at home with headache. Patient states she took Tylenol with minimal relief therefore call the office for instructions on what to do patient presented to OB triage where blood pressures in the 160s- 170's/100's. Patient had preeclampsia labs drawn which revealed an elevated AST/ALT. Prior labs on this patient revealed no abnormalities therefore patient was admitted to labor and delivery for observation given her elevated blood pressures and altered lab findings. Patient was placed on Procardia 60 mg extended release with minimal relief and her blood pressures, therefore the labetalol IV treatment was instituted and blood pressures did come down. Patient's labetalol dose was increased to 300 mg 3 times a day. She was on this dose yesterday with no concerns blood pressures were appreciated within normal range. Patient denies headache. Labs done yesterday morning revealed resolution of her elevated liver functions. Patient states she is feeling well. She is pumping and nursing. Infant remains in the nursery secondary to early gestational age. Patient was delivered at 35 weeks secondary to diagnosis of preeclampsia. Patient did have magnesium GTT after delivery, given the proximity to her readmission magnesium therapy was not really instituted. Patient's blood pressures have been well controlled with oral labetalol during this stay. Patient Condition at Discharge: Good Plan - Discharge Summary New Discharge Prescriptions: No Action buPROPion XL [Wellbutrin XL] 150 mg PO DAILY Vit No.179/Iron/Folic [ Tablet] 1 tab PO DAILY Labetalol [Trandate] 200 mg PO BID Discharge Medication List Vit No.179/Iron/Folic [ Tablet] 1 tab PO DAILY 08/09/21 [History] buPROPion XL [Wellbutrin XL] 150 mg PO DAILY 08/09/21 [History] Labetalol [Trandate] 200 mg PO BID 08/29/21 [History] Follow up Appointment(s)/Referral(s): Cherelle Linares DO [Doctor of Osteopathic Medicine] - 1 Week Discharge Disposition: HOME SELF-CARE
[2021-09-05 10:18] VITALS: BP 127/84; PULSE 88; RESP 16; TEMP 97.7
[2021-09-05] MEDS: IBUPROFEN 600 MG TAB PO PRN (10:31)
== END 2021-09-05 10:30 | disposition home or self-care (01) ==
LOC: FBPOP 14:39 → 4FBP 16:49 → OBSVTOIN 09-04 14:36 → INTOOBSV 09-04 14:36 → UNDODISIN 09-05 10:30
PROVIDERS: ADMIT Obstetrics & Gynecology Obstetrics; ATTEND Obstetrics & Gynecology Obstetrics
DX: O14.95 Unspecified pre-eclampsia, complicating the puerperium (principal); O99.345 Other mental disorders complicating the puerperium; F32.A Depression, unspecified; F90.9 Attention-deficit hyperactivity disorder, unspecified type; R74.01 Elevation of levels of liver transaminase levels; O99.335 Smoking (tobacco) complicating the puerperium; F17.290 Nicotine dependence, other tobacco product, uncomplicated; Z79.899 Other long term (current) drug therapy; Z88.8 Allergy status to other drugs, medicaments and biological substances; Z86.16 Personal history of COVID-19; Z98.891 History of uterine scar from previous surgery; Z98.890 Other specified postprocedural states; Z82.49 Family history of ischemic heart disease and other diseases of the circulatory system
CPT/HCPCS: 96361 ×2; 96374; 82565 ×2; 83615 ×2; 84450 ×2; 84460 ×2; 84520 ×2; 84550 ×2; 85025 ×2; 85384 ×2; 85610 ×2; 85730 ×2; G0463; G0378 ×3; S0197 ×2; 99215